=== PATIENT | male | born 1950 | race Caucasian/White ===

== ENCOUNTER 2016-04-20 19:01 | Emergency (ER) | payer BC ==
[2016-04-20 19:34] VITALS: BP 150/96; PULSE 76; TEMP 97.8; BMI 27.0
--- NOTE | 2016-04-20 20:40 | PDOC ---
*Physical Exam - Vital Signs Last Vital Signs Temp Pulse Resp BP Pulse Ox 97.8 F 76 18 150/96 96 04/20/16 19:32 04/20/16 19:32 04/20/16 19:32 04/20/16 19:32 04/20/16 19:32 ED Treatment Course - LABORATORY CBC & Chemistry Diagram: 04/20/16 21:45 04/20/16 21:45 Medical Decision Making - Medical Decision Making 04/20/16 20:40 agree with care from [facility] *DC/Admit/Observation/Transfer Diagnosis at time of Disposition: Lightheaded - Discharge Dispostion Disposition: HOME Condition at time of disposition: Improved - Referrals Referrals: Alfredo Goodman MD [Primary Care Provider] - - Patient Instructions Printed Discharge Instructions: DI for Dizziness-Nonvertigo Additional Instructions: FOLLOW UP WITH DR. GOODMAN ON MONDAY. GET REST. NO WORK UNTIL SEEN BY PCP. RETURN IF SYMPTOMS WORSEN OR ANY CONCERNS FOR FURTHER EVALUATION. Print Language: WELSH - Post Discharge Activity Work/School Note: Back to Work
--- NOTE | 2016-04-20 21:47 | PDOC ---
History of Present Illness - General Chief Complaint: Altered Mental Status Stated Complaint: ALTERED MENTAL STATE Time Seen by Provider: 04/20/16 20:08 History Source: Patient, Family (Daughter) Exam Limitations: No Limitations - History of Present Illness Initial Comments: 04/20/16 20:39 65yo Male patient presents to ED with daughter c/o altered mental status. Daughter states she received a call from her mother around 3pm today with concerns for her fathers well-being. Daughter then called her fathers place of employment, and spoke with a co-worker that works closely with her father, and he too expressed concerned that her father was acting strangely. Daughter pick father up from work and was instructed by PMD to bring him to ED for evaluation. Patient c/o feeling confused, dazed, experienced hot flash x 1. Associated polyuria and burning on urination per patient. Patient has history of prostate problems and HLD; he currently takes Flomax, Dutasteride, Lipitor. He denies CP, Abd pain, n/v/d, back pain, dysuria, hematuria, rectal bleeding, constipation, diff breathing, or any other complaints. Timing/Duration: reports: other (This Evening) Severity: Yes: mild Associated Symptoms: reports: confusion. denies: denies symptoms, fatigue, fever/chills, insomnia, loss of consciousness, muscle spasms, nausea/vomiting, numbness in legs/feet, paresthesia, ringing in ears, seizures, sleepy, slurred speech, tingling in legs/feet, trouble walking, vision changes, weakness, other Past History - Travel Traveled outside of the country in the last 30 days: No Close contact w/someone who was outside of country & ill: No - Past Medical History Allergies/Adverse Reactions: Allergies Allergy/AdvReac Type Severity Reaction Status Date / Time No Known Allergies Allergy Verified 04/20/16 19:32 Home Medications: Ambulatory Orders Aspirin [ASA -] 81 mg PO DAILY 12/08/14 Atorvastatin Ca [Lipitor -] 20 mg PO HS 12/08/14 Dutasteride [Avodart -] 0.5 mg PO DAILY 12/08/14 Tamsulosin HCl [Flomax] 0.4 mg PO DAILY 12/08/14 Topiramate [Topamax] 25 mg PO DAILY 12/08/14 Verapamil HCl [Verapamil ER] 240 mg PO DAILY 12/08/14 HTN: Yes Hypercholesterolemia: Yes - Psycho/Social/Smoking Cessation Hx Anxiety: No Suicidal Ideation: No Smoking History: Never smoked Have you smoked in the past 12 months: No Hx Alcohol Use: No Drug/Substance Use Hx: No Substance Use Type: None Neuro Specific PMHX - Complaint Specific PMHX Glaucoma: No Herniated Disk: No Laminectomy: No Migraine: No Multiple Sclerosis: No Neuropathy: No TIA: No Review of Systems - Review of Systems Able to Perform ROS?: Yes Is the patient limited Kyrgyz proficient: Yes Constitutional: No: Chills, Fever, Loss of Appetite, Malaise, Night Sweats, Weakness HEENTM: No: Blurred Vision, Recent change in vision, Double Vision, Nose Congestion, Nose Bleeding, Throat Pain, Throat Swelling, Difficulty Swallowing Respiratory: No: Cough, Orthopnea, Shortness of Breath, SOB with Exertion, SOB at Rest, Stridor, Wheezing, Hemoptysis Cardiac (ROS): No: Chest Pain, Edema, Irregular Heart Rate, Lightheadedness, Palpitations, Syncope, Chest Tightness ABD/GI: No: Constipated, Diarrhea, Nausea, Poor Appetite, Poor Fluid Intake, Rectal Bleeding, Vomiting, Abdominal cramping, Tarry Stools : Yes: Burning, Other (Polyuria). No: Dysuria, Frequency, Flank Pain, Hematuria, Pain, Urgency Musculoskeletal: No: Back Pain, Joint Pain, Joint Swelling, Muscle Pain, Muscle Weakness, Neck Pain, Joint Stiffness Integumentary: No: Bruising, Erythema, Rash, Sweating Neurological: No: Headache, Numbness, Paresthesia, Seizure, Tingling, Tremors, Weakness, Unsteady Gait, Ataxia, Dizziness Psychiatric: No: Anxiety, Depression All Other Systems: Reviewed and Negative *Physical Exam - Vital Signs Last Vital Signs Temp Pulse Resp BP Pulse Ox 97.8 F 76 18 150/96 96 04/20/16 19:32 04/20/16 19:32 04/20/16 19:32 04/20/16 19:32 04/20/16 19:32 - Physical Exam General Appearance: Yes: Nourished, Appropriately Dressed. No: Apparent Distress, Mild Distress, Moderate Distress, Severe Distress HEENT: positive: EOMI, RACHEL, Normal ENT Inspection, Normal Voice, Symmetrical, TMs Normal, Pharynx Normal. negative: Tonsillar Exudate, Tonsillar Erythema, Rhinorrhea, TM Bulging, TM Dull, TM Erythema Neck: positive: Trachea midline, Supple. negative: Decreased range of motion, Stridor, Lymphadenopathy (R), Lymphadenopathy (L) Respiratory/Chest: positive: Lungs Clear, Normal Breath Sounds. negative: Respiratory Distress, Accessory Muscle Use, Labored Respiration, Rapid RR, Decreased Breath Sounds, Crackles, Rales, Rhonchi, Stridor, Wheezing Cardiovascular: positive: Regular Rhythm, Regular Rate. negative: Edema, JVD, Murmur Gastrointestinal/Abdominal: positive: Normal Bowel Sounds, Soft. negative: Distended, Guarding, Rebound, Tenderness Lymphatic: negative: Adenopathy Musculoskeletal: positive: Normal Inspection. negative: CVA Tenderness Extremity: positive: Normal Capillary Refill, Normal Inspection, Normal Range of Motion. negative: Pedal Edema, Swelling Integumentary: positive: Normal Color, Dry, Warm. 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 MARCI GOODMAN) REVIEWED RESULTS, LABS, AND RADIOLOGY. "HAVE PATIENT FOLLOW UP ON MONDAY IN OFFICE." *DC/Admit/Observation/Transfer Diagnosis at time of Disposition: Lightheadedness - Discharge Dispostion Disposition: HOME Condition at time of disposition: Improved - Patient Instructions Printed Discharge Instructions: DI for Dizziness-Nonvertigo Additional Instructions: FOLLOW UP WITH DR. GOODMAN ON MONDAY. GET REST. NO WORK UNTIL SEEN BY PCP. RETURN IF SYMPTOMS WORSEN OR ANY CONCERNS FOR FURTHER EVALUATION. Print Language: NIGERIEN - Post Discharge Activity Work/School Note: Back to Work NIH Stroke Scale - Last Known Well Date/Time & Onset Date Last Known Well: 04/20/16 Time Last Known Well: 13:00 - Initial Evaluation Level of consciousness: Alert Ask patient the month and their age: Answers both correctly Ask patient to open & close eyes; make fist and let go: Obeys both correctly Best gaze (horizontal eye movement): Normal Visual field testing: No visual field loss Facial paresis (Show teeth/raise eyebrows/close eyes tight): Normal symmetrical movement Motor Function: Left Arm: Normal Motor Function: Right Arm: Normal (extends arm 90 (or 45) degrees for 10 seconds without drift Motor Function: Left Leg: Normal (extends leg 30 degrees for 5 seconds without drift) Motor Function: Right Leg: Normal (extends leg 30 degrees for 5 seconds without drift) Limb Ataxia: No ataxia Sensory(Use pinprick test arms,legs,trunk,face/side to side): Normal Best language (Describe picture, name items, read sentences): No Aphasia Dysarthria (read several words): Normal articulation Extinction and Inattention: No abnormality - Total Score NIH Stroke Scale Score: 0
[2016-04-20 21:58] LABS: URINE APPEARANCE CLEAR; URINE BILIRUBIN NEGATIVE (NEGATIVE); URINE BLOOD NEGATIVE (NEGATIVE); URINE COLOR STRAW; URINE GLUCOSE (UA) NEGATIVE (NEGATIVE); URINE KETONE NEGATIVE (NEGATIVE); URINE LEUK ESTERASE NEGATIVE (NEGATIVE); URINE NITRITE NEGATIVE (NEGATIVE); URINE PROTEIN NEGATIVE (NEGATIVE); URINE UROBILINOGEN NEGATIVE E.U./dl (0.2-1.0)
[2016-04-20 22:01] LABS: BASOPHIL 0.5 % (0-2.0); MCH 28.8 pg (25.7-33.7); MCHC 33.7 g/dl (32.0-35.9); MEAN CELL VOLUME 85.3 fl (80-96); MEAN PLT VOLUME 8.4 fl (7.5-11.1); NEUTROPHILS 60.5 % (42.8-82.8); PLATELET COUNT 269 K/MM3 (134-434); RDW 13.5 % (11.9-15.9); WHITE BLOOD COUNT 7.1 K/mm3 (4.0-10.0)
[2016-04-20 22:49] LABS: ALBUMIN 4.4 g/dl (3.4-5.0); ANION GAP 8 (8-16); BILIRUBIN,TOTAL 0.5 mg/dL (0.2-1.0); CALCIUM 9.8 mg/dL (8.5-10.1); CO2 28 mmol/L (21-32); GLUCOSE,RANDOM 93 mg/dL (74-106); SGOT/AST 23 U/L (15-37); SGPT/ALT 28 U/L (12-78); TOT PROT 7.4 g/dl (6.4-8.2)
[2016-04-20 22:52] LABS: ALK PHOS 67 U/L (45-117); TROPONIN I < 0.02 ng/ml (0.00-0.05)
--- NOTE | 2016-04-21 10:36 | EKG ---
Test Reason : Blood Pressure : / mmHG Vent. Rate : 067 BPM Atrial Rate : 067 BPM P-R Int : 208 ms QRS Dur : 094 ms QT Int : 404 ms P-R-T Axes : 056 007 042 degrees QTc Int : 426 ms NORMAL SINUS RHYTHM NORMAL ECG WHEN COMPARED WITH ECG OF 09-DEC-2014 08:54, NO SIGNIFICANT CHANGE WAS FOUND Confirmed by SANDRA CELIS MD ([id number]) on 04/21/2016 10:36:04 AM Referred By: Confirmed By:SANDRA CELIS MD
== END 2016-04-21 02:44 | disposition home or self-care (01) ==
LOC: JER 19:01
DX: R42 Dizziness and giddiness (principal); I10 Essential (primary) hypertension; E78.00 Pure hypercholesterolemia, unspecified
CPT/HCPCS: 36415; 70450-TC; 70460-TC; 71020-TC; 80053; 81003; 82550; 82553; 84484; 85025; 93005; 93010; 93880-TC; 99282-25

== ENCOUNTER 2017-04-20 16:07 | Inpatient (IN) | payer BC ==
[2017-04-20 16:44] VITALS: BMI 29.3
--- NOTE | 2017-04-20 16:45 | PDOC ---
Rapid Medical Evaluation Time Seen by Provider: 04/20/17 16:39 Medical Evaluation: Allergies Allergy/AdvReac Type Severity Reaction Status Date / Time No Known Allergies Allergy Verified 04/20/16 19:32 04/20/17 16:40 PT C/O: abd pain since this am, BRB since 1pm, no constipation, no diarrhea, no GI hx,, no cancer hx, no anticoag PT ON BRIEF EXAM: tachy, PT ORDERED FOR: cbc, comp, lipase, iv, ivf, type and screen, abd ct PT TO PROCEED TO THE ED: Discharge Disposition - Diagnosis Rectal bleeding - Referrals - Patient Instructions - Post Discharge Activity
[2017-04-20] MEDS ORDERED: SODIUM CHLORIDE 1,000 ML IV STA (16:46)
[2017-04-20 17:27] LABS: BASO % 0.9 % (0-2.0); HEMATOCRIT 44.1 % (35.4-49); HEMOGLOBIN 14.8 GM/dL (11.7-16.9); LYMPH % 22.5 % (8-40); MCH 28.9 pg (25.7-33.7); MCHC 33.5 g/dl (32.0-35.9); MEAN PLT VOLUME 8.9 fl (7.5-11.1); MONO % 5.8 % (3.8-10.2); NEUT % 69.8 % (42.8-82.8); PLATELET COUNT 330 K/MM3 (134-434); RBC 5.13 M/mm3 (4.00-5.60); RDW 13.9 % (11.9-15.9); WHITE BLOOD COUNT 7.5 K/mm3 (4.0-10.0)
[2017-04-20 17:59] LABS: INR 1.05 (0.82-1.09); PROTHROMBIN TIME (PATIENT) 11.9 SEC (9.98-11.88)
[2017-04-20 18:09] LABS: ALBUMIN 4.3 g/dl (3.4-5.0); ANION GAP 8 (8-16); BLOOD UREA NITROGEN 30 mg/dL (7-18); CALCIUM 8.5 mg/dL (8.5-10.1); CHLORIDE 106 mmol/L (98-107); CO2 25 mmol/L (21-32); CREATININE 1.3 mg/dL (0.7-1.3); GLUCOSE,RANDOM 123 mg/dL (74-106); POTASSIUM 4.5 mmol/L (3.5-5.1); SGOT/AST 14 U/L (15-37); SGPT/ALT 23 U/L (12-78); SODIUM 139 mmol/L (136-145)
[2017-04-20 18:11] LABS: ALK PHOS 59 U/L (45-117); BILIRUBIN,TOTAL 0.5 mg/dL (0.2-1.0); TOT PROT 7.2 g/dl (6.4-8.2)
[2017-04-20 18:12] LABS: LIPASE 204 U/L (73-393)
[2017-04-20] MEDS ORDERED: SODIUM CHLORIDE 0.9% 1000 ML INFUS.BAG IV ONE (19:39)
--- NOTE | 2017-04-20 20:34 | PDOC ---
History of Present Illness - General History Source: Patient Exam Limitations: No Limitations - History of Present Illness Initial Comments: 04/20/17 20:35 The patient is a 66 year old male with a significant PMH of constipation, BPH, HLD, and HTN who presents to the emergency department with abdominal pain since this morning and 6 episodes of bright red blood per rectum since 1PM today. The patient is also complaining of associated urinary urgency. The patient reports he experiences frequent constipation for which he takes a pill. The patient has had 4 episodes of bright red blood per rectum while being in the ER. The patient denies use of anticoagulants. The patient denies any GI history. The patient denies chest pain, shortness of breath, headache and dizziness. Denies fever, chills, nausea, vomit, and diarrhea Denies dysuria, frequency, and hematuria. Allergies: NKA Past surgical history: None reported. Social history: No reported alcohol, cigarette or drug use. PCP: Dr. Alfredo Burden GI: Dr. Wyatt <Renee Cerrato - Last Filed: 04/20/17 20:35> <Dora Garcia - Last Filed: 04/20/17 21:07> - General Chief Complaint: Rectal Bleed Stated Complaint: DIARRHEA Time Seen by Provider: 04/20/17 16:39 Past History <Renee Cerrato - Last Filed: 04/20/17 20:35> - Past Medical History COPD: No HTN: Yes Hypercholesterolemia: Yes - Suicide/Smoking/Psychosocial Hx Smoking History: Never smoked Have you smoked in the past 12 months: No Hx Alcohol Use: No Drug/Substance Use Hx: No Substance Use Type: None <Dora Garcia - Last Filed: 04/20/17 21:07> - Past Medical History Allergies/Adverse Reactions: Allergies Allergy/AdvReac Type Severity Reaction Status Date / Time No Known Allergies Allergy Verified 04/20/16 19:32 Home Medications: Ambulatory Orders Aspirin [ASA -] 81 mg PO DAILY 12/08/14 Dutasteride [Avodart -] 0.5 mg PO DAILY 12/08/14 Tamsulosin HCl [Flomax] 0.4 mg PO DAILY 12/08/14 Topiramate [Topamax] 25 mg PO DAILY 12/08/14 Review of Systems - Review of Systems Able to Perform ROS?: Yes Comments:: 04/20/17 20:36 GENERAL/CONSTITUTIONAL: No fever or chills. No weakness. HEAD, EYES, EARS, NOSE AND THROAT: No change in vision. No ear pain or discharge. No sore throat. GASTROINTESTINAL: (+) Abd pain. No nausea, vomiting, diarrhea or constipation. GENITOURINARY: (+) Bright red blood per rectum. No dysuria, frequency, or change in urination. CARDIOVASCULAR: No chest pain or shortness of breath. RESPIRATORY: No cough, wheezing, or hemoptysis. MUSCULOSKELETAL: No joint or muscle swelling or pain. No neck or back pain. SKIN: No rash NEUROLOGIC: No headache, vertigo, loss of consciousness, or change in strength/ sensation. ENDOCRINE: No increased thirst. No abnormal weight change. HEMATOLOGIC/LYMPHATIC: No anemia, easy bleeding, or history of blood clots. ALLERGIC/IMMUNOLOGIC: No hives or skin allergy. <Renee Cerrato - Last Filed: 04/20/17 20:35> *Physical Exam - Vital Signs Last Vital Signs Temp Pulse Resp BP Pulse Ox 97.8 F 92 H 16 143/105 98 04/20/17 16:41 04/20/17 19:04 04/20/17 19:04 04/20/17 19:04 04/20/17 19:04 - Physical Exam Comments: 04/20/17 20:35 Constitutional: Awake, alert, oriented. No acute distress. Head: Normocephalic. Atraumatic Eyes: PERRL. EOMI. Conjunctivae are not pale. ENT: Mucous membranes are moist and intact. Posterior pharynx without exudates or erythema. Uvula midline. Neck: Supple. Full ROM. No lymphadenopathy. Cardiovascular: (+) Tachycardic. Regular rhythm. S1, S2 regular. Distal pulses are 2+ and symmetric. Pulmonary/Chest: No evidence of respiratory distress. Clear to auscultation bilaterally No wheezing, rales or rhonchi. Abdominal: Soft and non-distended. There is no tenderness. No rebound, guarding or rigidity. No organomegaly. No palpable masses. Good bowel sounds. : (+) Bright red blood per rectum. Back: No CVA tenderness. Musculoskeletal: No edema. No cyanosis. No clubbing. Full range of motion in all extremities. Nocalf tenderness. Radial/pedal pulses are intact and 2+ bilaterally Skin: Skin is warm and dry. No petechiae. No purpura. Neurological: Alert and oriented to person, place, and time. Cranial nerves II -XII are grossly intact. Normal speech. Strength is grossly symmetric. No sensory deficits. Psychiatric: Good eye contact. Normal interaction, affect and behavior. <Renee Cerrato - Last Filed: 04/20/17 20:35> - Vital Signs Last Vital Signs Temp Pulse Resp BP Pulse Ox 97.8 F 92 H 16 143/105 98 04/20/17 16:41 04/20/17 19:04 04/20/17 19:04 04/20/17 19:04 04/20/17 19:04 <Dora Garcia - Last Filed: 04/20/17 21:07> ED Treatment Course - LABORATORY CBC & Chemistry Diagram: 04/20/17 16:58 04/20/17 16:58 - ADDITIONAL ORDERS Additional order review: Laboratory Results 04/20/17 04/20/17 04/20/17 17:16 16:58 16:58 PT with INR 11.90 H INR 1.05 Sodium Potassium Chloride Carbon Dioxide Anion Gap BUN Creatinine Creat Clearance w eGFR Random Glucose Calcium Magnesium 2.1 Total Bilirubin AST ALT Alkaline Phosphatase Total Protein Albumin Lipase Blood Type B POSITIVE Antibody Screen Negative 04/20/17 16:58 PT with INR INR Sodium 139 Potassium 4.5 Chloride 106 Carbon Dioxide 25 Anion Gap 8 BUN 30 H D Creatinine 1.3 D Creat Clearance w eGFR 55.06 Random Glucose 123 H D Calcium 8.5 Magnesium Total Bilirubin 0.5 AST 14 L D ALT 23 Alkaline Phosphatase 59 Total Protein 7.2 Albumin 4.3 Lipase 204 Blood Type Antibody Screen 04/20/17 16:58 RBC 5.13 MCV 86.0 MCHC 33.5 RDW 13.9 MPV 8.9 Neutrophils % 69.8 Lymphocytes % 22.5 D Monocytes % 5.8 Eosinophils % 1.0 Basophils % 0.9 - Medications Given in the ED: ED Medications Discontinued Medications Generic Name Dose Route Start Last Admin Trade Name Freq PRN Reason Stop Dose Admin Sodium Chloride 1,000 mls @ 1,000 mls/hr 04/20/17 16:46 04/20/17 18:07 Normal Saline - IV 04/20/17 17:45 1,000 mls/hr ASDIR STA Administration Sodium Chloride 1,000 ml 04/20/17 19:39 04/20/17 19:48 Normal Saline - IV 04/20/17 19:40 1,000 ml ONCE ONE Administration <Renee Cerrato - Last Filed: 04/20/17 20:35> - LABORATORY CBC & Chemistry Diagram: 04/20/17 16:58 04/20/17 16:58 - ADDITIONAL ORDERS Additional order review: Laboratory Results 04/20/17 04/20/17 04/20/17 17:16 16:58 16:58 PT with INR 11.90 H INR 1.05 Sodium Potassium Chloride Carbon Dioxide Anion Gap BUN Creatinine Creat Clearance w eGFR Random Glucose Calcium Magnesium 2.1 Total Bilirubin AST ALT Alkaline Phosphatase Total Protein Albumin Lipase Blood Type B POSITIVE Antibody Screen Negative 04/20/17 16:58 PT with INR INR Sodium 139 Potassium 4.5 Chloride 106 Carbon Dioxide 25 Anion Gap 8 BUN 30 H D Creatinine 1.3 D Creat Clearance w eGFR 55.06 Random Glucose 123 H D Calcium 8.5 Magnesium Total Bilirubin 0.5 AST 14 L D ALT 23 Alkaline Phosphatase 59 Total Protein 7.2 Albumin 4.3 Lipase 204 Blood Type Antibody Screen 04/20/17 16:58 RBC 5.13 MCV 86.0 MCHC 33.5 RDW 13.9 MPV 8.9 Neutrophils % 69.8 Lymphocytes % 22.5 D Monocytes % 5.8 Eosinophils % 1.0 Basophils % 0.9 - RADIOLOGY Radiology Studies Ordered: Category Date Time Status ABDOMEN & PELVIS CT W/O CONTR [CT] Stat CT Scan 04/20/17 19:54 Completed - Medications Given in the ED: ED Medications Discontinued Medications Generic Name Dose Route Start Last Admin Trade Name Freq PRN Reason Stop Dose Admin Sodium Chloride 1,000 mls @ 1,000 mls/hr 04/20/17 16:46 04/20/17 18:07 Normal Saline - IV 04/20/17 17:45 1,000 mls/hr ASDIR STA Administration Sodium Chloride 1,000 ml 04/20/17 19:39 04/20/17 19:48 Normal Saline - IV 04/20/17 19:40 1,000 ml ONCE ONE Administration <Dora Garcia - Last Filed: 04/20/17 21:07> Medical Decision Making - Medical Decision Making 04/20/17 20:32 a/p: 66yo male with 6 episodes of BRBPR -rectal exam with BRB will check labs, ivf hydration pts gi is dr. wyatt suspect diverticular bleed given painless bleeding ct abd/pelvis w contrast ordered from E 04/20/17 20:[address] shows diverticulosis case discussed with Dr. Burden - states he is admitting to the hospitalists service microblog sent to [facility] 04/20/17 20:40 family updated on the plan 04/20/17 20:[address] Orourke - accepts pt to tele <Dora Garcia - Last Filed: 04/20/17 21:07> *DC/Admit/Observation/Transfer <Renee Cerrato - Last Filed: 04/20/17 20:35> - Discharge Dispostion Admit: Yes - Attestations Physician Attestion: 04/20/17 20:34 I, Dr. Dora Garcia, DO, attest that this document has been prepared under my direction and personally reviewed by me in its entirety. I further attest, that it accurately reflects all work, treatment, procedures and medical decision -making performed by me. <Dora Garcia - Last Filed: 04/20/17 21:07> Diagnosis at time of Disposition: Rectal bleeding, Diverticular hemorrhage - Discharge Dispostion Condition at time of disposition: Fair - Referrals Referrals: Alfredo Burden MD [Primary Care Provider] - - Patient Instructions - Post Discharge Activity
--- NOTE | 2017-04-20 20:56 | HP ---
CHIEF COMPLAINT: LGIB PCP: Dr. Burden HISTORY OF PRESENT ILLNESS: 66 y/o M with PMH constipation (has had for 10 yrs; uses metamucil, miralax as per daughter), who presents to the ED c/o 4-5 episodes of painless BRBPR over the last day. He is on baby aspirin. As per pt, at noon today, he went to a local [facility] for soup. Right after, he had the urge to have a BM and when he went, he noticed BRB mixed in with loose stool. Pt had no associated abdominal pain or other sx at the time. He subsequently had 3-4 additional BMs, all loose over the next 8-9 hours, with BRB seen in the toilet bowl. Pt states that he has not had any drastic changes to his diet recently, and his BMs have been routine (1x/day). He follows with Dr. Rice, and last had a colonoscopy 2 yrs ago and upper endoscopy last yr, as per daughter, and both were WNL. Pt denies XIE, syncope, palpitations, lightheadedness, fever, chills, chest or abdominal pain, or changes in urinary or bowel function. Also denies constitutional sx. 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 Were filled in March for 90 day supply -Flomax 0.4mg qd -Verapamil ER 240 mg qd -Avodart 0.5 mg qd -Vascepa 1g 2 capsules BID -Lipitor 20mg 1tab qd Has not been filled since September: -Wellbutrin XL 150mg 1 tab qd REVIEW OF SYSTEMS CONSTITUTIONAL: Absent: fever, chills, diaphoresis, generalized weakness, malaise, loss of appetite, weight change HEENT: Absent: rhinorrhea, nasal congestion, throat pain, throat swelling, difficulty swallowing, mouth swelling, ear pain, eye pain, visual changes CARDIOVASCULAR: Absent: chest pain, syncope, palpitations, irregular heart rate, lightheadedness , peripheral edema RESPIRATORY: Absent: cough, shortness of breath, dyspnea with exertion, orthopnea, wheezing, stridor, hemoptysis GASTROINTESTINAL: +hematochezia Absent: abdominal pain, abdominal distension, nausea, vomiting, diarrhea, constipation, melena GENITOURINARY: Absent: dysuria, frequency, urgency, hesitancy, hematuria, flank pain, genital pain MUSCULOSKELETAL: Absent: myalgia, arthralgia, joint swelling, back pain, neck pain SKIN: Absent: rash, itching, pallor HEMATOLOGIC/IMMUNOLOGIC: Absent: easy bleeding, easy bruising, lymphadenopathy, frequent infections ENDOCRINE: Absent: unexplained weight gain, unexplained weight loss, heat intolerance, cold intolerance NEUROLOGIC: Absent: headache, focal weakness or paresthesias, dizziness, unsteady gait, seizure, mental status changes, bladder or bowel incontinence PSYCHIATRIC: Absent: anxiety, depression, suicidal or homicidal ideation, hallucinations. PHYSICAL EXAMINATION Vital Signs - 24 hr 04/20/17 04/20/17 16:41 19:04 Temperature 97.8 F Pulse Rate 118 H Pulse Rate [ 92 H Left Apical] Respiratory 18 16 Rate Blood Pressure 131/91 Blood Pressure 143/105 [Right Arm] O2 Sat by Pulse 98 98 Oximetry (%) GENERAL: Resting comfortably. Awake, alert, and fully oriented, in no acute distress. HEAD: Normal with no signs of trauma. EYES: Pupils equal, round and reactive to light, extraocular movements intact, sclera anicteric, conjunctiva clear. EARS, NOSE, THROAT: Ears normal, nares patent, oropharynx clear without exudates. Moist mucous membranes. NECK: Normal range of motion, supple LUNGS: Breath sounds equal, clear to auscultation bilaterally. No wheezes, and no crackles. No accessory muscle use. HEART: tachycardic rate and rhythm, normal S1 and S2 without murmur, rub or gallop. ABDOMEN: Soft, nontender, not distended, hyperactive bowel sounds, no guarding, no rebound, no masses. LOWER EXTREMITIES: 2+ posterior pulses, warm, well-perfused. No calf tenderness. No peripheral edema. NEUROLOGICAL: Cranial nerves II-XII intact. RECTAL: FOBT (+) Laboratory Results - last 24 hr 04/20/17 04/20/17 04/20/17 16:58 16:58 16:58 WBC 7.5 RBC 5.13 Hgb 14.8 Hct 44.1 MCV 86.0 MCH 28.9 MCHC 33.5 RDW 13.9 Plt Count 330 D MPV 8.9 Neutrophils % 69.8 Lymphocytes % 22.5 D Monocytes % 5.8 Eosinophils % 1.0 Basophils % 0.9 Sodium 139 Potassium 4.5 Chloride 106 Carbon Dioxide 25 Anion Gap 8 BUN 30 H D Creatinine 1.3 D Creat Clearance w eGFR 55.06 Random Glucose 123 H D Calcium 8.5 Magnesium Total Bilirubin 0.5 AST 14 L D ALT 23 Alkaline Phosphatase 59 Total Protein 7.2 Albumin 4.3 Lipase 204 Blood Type B POSITIVE Antibody Screen Negative 04/20/17 04/20/17 04/20/17 16:58 17:16 20:22 Basophils % PT with INR 11.90 H INR 1.05 Magnesium 2.1 Total Bilirubin Lipase Stool Occult Blood Positive Blood Type Radio CXR: without infiltrates or acute pathology, official report pending CT abd/pelvis: no evidence of bowel obstruction, sigmoid diverticulosis R and L colon. Possible reflux from GERD also noted, enlarged prostate gland, high riding testes-inguinal canal. ASSESSMENT/PLAN: 66 y/o M with PMH constipation (has had for 10 yrs; uses metamucil, miralax as per daughter), who presents to the ED c/o 4-5 episodes of BRBPR over the last day. Pt admitted to telemetry for lower GIB most likely 2/2 diverticular bleed. #Lower GIB most likely 2/2 diverticular bleed -Pt with hx multiple episodes painless BRBPR over last day -Hx of constipation, increased luminal pressure- diverticulosis -other differentials: angiodysplasia, hemorrhoids -currently pt hemodynamically stable. HR elevated most likely 2/2 anxiety -GI consult: Dr. Rice, to see in AM -H&H WNL -F/u CBC q6h -Transfuse if Hb<7; type and screen done -NPO for bowel rest -IVF -Hold aspirin, and any a/c -tele monitoring #HTN- currently uncontrolled -will monitor. most likely 2/2 anxiety -holding home verapamil 240 mg qd -continue to monitor BP #HLD -holding lipitor 20mg PO qd -holding vascepa 1g 2 capsules BID #BPH -Continue avodart 0.5mg qd -Flomax 0.4mg qd #ANIYAH most likely pre-renal -IVF -Monitor creatinine #PPX DVT: SCD's, no hep as pt with bleed #F/E/N IV NS 100 cc/hr Monitor electrolytes NPO #Disposition Telemetry monitoring Visit type - Emergency Visit Emergency Visit: Yes ED Registration Date: 04/20/17 Care time: The patient presented to the Emergency Department on the above date and was hospitalized for further evaluation of their emergent condition. - New Patient This patient is new to me today: Yes Date on this admission: 04/21/17 - Critical Care Critical Care patient: No
[2017-04-20] MEDS ORDERED: TAMSULOSIN HCL 0.4 MG CAP.ER.24H (FP) PO SCH (22:00)
[2017-04-20] MEDS ORDERED: TOPIRAMATE 25 MG TABLET (FP) ONE (22:32)
[2017-04-20] MEDS ORDERED: TAMSULOSIN HCL 0.4 MG CAP.ER.24H (FP) ONE (22:32)
[2017-04-20] MEDS: SODIUM CHLORIDE 1,000 ML IV SCH (23:26)
[2017-04-20] MEDS: DUTASTERIDE 0.5 MG CAP (FP) PO SCH (23:26)
[2017-04-20] MEDS: TOPIRAMATE 25 MG TABLET (FP) PO SCH (23:27)
--- NOTE | 2017-04-20 23:46 | PN ---
Teaching Attending Note Name of Resident: Julisa Neely ATTENDING PHYSICIAN STATEMENT I saw and evaluated the patient. I reviewed the resident's note and discussed the case with the resident. I agree with the resident's findings and plan as documented. SUBJECTIVE: This is a 66 year old man with a history of HTN, hyperlipidemia, BPH , constipation who comes to the ED complaining of rectal bleeding. He says that around 2:30pm today while at work, he had the urge to move his bowels. He noted bright red blood, and he has had several more episodes since. He denies abdominal pain, history of rectal bleeding. He takes baby aspirin daily. He had a colonoscopy ~2 years ago and endoscopy ~1 year ago, and he reports both were normal. He is unsure if he has diverticulosis or hemorrhoids. OBJECTIVE: Vital Signs Period Temp Pulse Resp BP Sys/Walls Pulse Ox Last 24 Hr 97.8 F 92-118 16-18 131-143/91-105 98-98 HEART: S1S2, tachycardic LUNGS: Clear ABDOMEN: Soft, non-tender, non-distended, normal BS EXTREMITIES: No edema Laboratory Tests 04/20/17 04/20/17 04/20/17 16:58 16:58 16:58 WBC 7.5 RBC 5.13 Hgb 14.8 Hct 44.1 MCV 86.0 MCH 28.9 MCHC 33.5 RDW 13.9 Plt Count 330 D MPV 8.9 Neutrophils % 69.8 Lymphocytes % 22.5 D Monocytes % 5.8 Eosinophils % 1.0 Basophils % 0.9 PT with INR INR Sodium 139 Potassium 4.5 Chloride 106 Carbon Dioxide 25 Anion Gap 8 BUN 30 H D Creatinine 1.3 D Creat Clearance w eGFR 55.06 Random Glucose 123 H D Calcium 8.5 Magnesium Total Bilirubin 0.5 AST 14 L D ALT 23 Alkaline Phosphatase 59 Total Protein 7.2 Albumin 4.3 Lipase 204 Stool Occult Blood Blood Type B POSITIVE Antibody Screen Negative 04/20/17 04/20/17 04/20/17 16:58 17:16 20:22 WBC RBC Hgb Hct MCV MCH MCHC RDW Plt Count MPV Neutrophils % Lymphocytes % Monocytes % Eosinophils % Basophils % PT with INR 11.90 H INR 1.05 Sodium Potassium Chloride Carbon Dioxide Anion Gap BUN Creatinine Creat Clearance w eGFR Random Glucose Calcium Magnesium 2.1 Total Bilirubin AST ALT Alkaline Phosphatase Total Protein Albumin Lipase Stool Occult Blood Positive Blood Type Antibody Screen Home Medications Medication Instructions Recorded Aspirin [ASA -] 81 mg PO DAILY 12/08/14 Dutasteride [Avodart -] 0.5 mg PO DAILY 12/08/14 Tamsulosin HCl [Flomax] 0.4 mg PO DAILY 12/08/14 Topiramate [Topamax] 25 mg PO DAILY 12/08/14 Atorvastatin Calcium [Lipitor] 20 mg PO 04/20/17 Verapamil HCl [Verapamil ER] 240 mg PO 04/20/17 ASSESSMENT AND PLAN: This is a 66 year old man with a history of HTN, hyperlipidemia, BPH, constipation who presented to the ED with several episodes of painless rectal bleeding. 1. Rectal bleeding - Diverticular vs AVM vs hemorrhoidal - NPO - Hold aspirin - IV fluid - Monitor hemoglobin - GI consult 2. Acute kidney injury - IV fluid - Monitor creatinine 3. HTN - Continue Verapamil 4. Hyperlipidemia - Continue Lipitor, Vascepa 5. BPH - Continue Flomax, Avodart
[2017-04-21 01:10] LABS: HEMATOCRIT 30.8 % (35.4-49); HEMOGLOBIN 10.4 GM/dL (11.7-16.9); MCH 28.9 pg (25.7-33.7); MCHC 33.8 g/dl (32.0-35.9); MEAN CELL VOLUME 85.7 fl (80-96); MEAN PLT VOLUME 8.3 fl (7.5-11.1); PLATELET COUNT 253 K/MM3 (134-434); RBC 3.59 M/mm3 (4.00-5.60); RDW 13.1 % (11.9-15.9); WHITE BLOOD COUNT 7.7 K/mm3 (4.0-10.0)
[2017-04-21 07:18] LABS: ANION GAP 6 (8-16); BLOOD UREA NITROGEN 33 mg/dL (7-18); CALCIUM 7.7 mg/dL (8.5-10.1); CHLORIDE 110 mmol/L (98-107); CO2 24 mmol/L (21-32); GLUCOSE,RANDOM 118 mg/dL (74-106); POTASSIUM 4.3 mmol/L (3.5-5.1); SODIUM 140 mmol/L (136-145)
[2017-04-21 08:00] LABS: BASO % 0.6 % (0-2.0); EOS % 0.9 % (0-4.5); HEMATOCRIT 29.6 % (35.4-49); LYMPH % 21.5 % (8-40); MCH 29.1 pg (25.7-33.7); MCHC 33.6 g/dl (32.0-35.9); MEAN CELL VOLUME 86.5 fl (80-96); MEAN PLT VOLUME 8.7 fl (7.5-11.1); MONO % 7.4 % (3.8-10.2); NEUT % 69.6 % (42.8-82.8); PLATELET COUNT 234 K/MM3 (134-434); RBC 3.43 M/mm3 (4.00-5.60); RDW 13.6 % (11.9-15.9); WHITE BLOOD COUNT 7.1 K/mm3 (4.0-10.0)
[2017-04-21] MEDS: DUTASTERIDE 0.5 MG CAP (FP) PO SCH (12:00)
[2017-04-21] MEDS: TOPIRAMATE 25 MG TABLET (FP) PO SCH (12:00)
[2017-04-21 12:49] LABS: HEMATOCRIT 30.1 % (35.4-49); MCH 28.6 pg (25.7-33.7); MCHC 33.1 g/dl (32.0-35.9); MEAN CELL VOLUME 86.3 fl (80-96); MEAN PLT VOLUME 8.4 fl (7.5-11.1); PLATELET COUNT 250 K/MM3 (134-434); RBC 3.48 M/mm3 (4.00-5.60); RDW 13.6 % (11.9-15.9); WHITE BLOOD COUNT 7.8 K/mm3 (4.0-10.0)
--- NOTE | 2017-04-21 14:13 | EKG ---
Test Reason : Blood Pressure : / mmHG Vent. Rate : 088 BPM Atrial Rate : 088 BPM P-R Int : 184 ms QRS Dur : 078 ms QT Int : 342 ms P-R-T Axes : 048 -15 024 degrees QTc Int : 413 ms NORMAL SINUS RHYTHM CANNOT RULE OUT INFERIOR INFARCT , AGE UNDETERMINED ABNORMAL ECG Confirmed by JAYA ÉPREZ MD ([id number]) on 04/21/2017 2:13:17 PM Referred By: Confirmed By:JAYA PÉREZ MD
--- NOTE | 2017-04-21 14:18 | PN ---
Progress Note (short form) - Note Progress Note: surgery pt seen and examined. full consult dictated. 66m with diverticulosis presents with painless rectal bleed that has stopped. no previous surgery. bleeding scan done but results pending. hgb 14, 10, 10, 10 abd- soft, nt Plan- gi bleed likely stopped and not localized. mangement per gi and IR. available if there is failure of conservative management
--- NOTE | 2017-04-21 14:26 | PN ---
Teaching Attending Note Name of Resident: Tony Pinzon ATTENDING PHYSICIAN STATEMENT I saw and evaluated the patient. I reviewed the resident's note and discussed the case with the resident. I agree with the resident's findings and plan as documented. SUBJECTIVE: No fever or chills , last bloody BM was this am in ER. No Abd pain , no pain in rectum, has no N/V, no previous bleeding. unit of blood was declined earlier as patient wished to receive it on floor not in ER despite resident and me explaining to pt and daughter OBJECTIVE: NAD, AAOx3 CV: RRR, no MRG Lung s: CTAB ext: no edema or erythema Abd: soft, NT, ND, NL BS ASSESSMENT AND PLAN: 66 y/o lady with h/o HTN, BPH, HLP and constipation who presented with painless rectal bleed. 1- GI bleed with acute blood los anemia , likely lower , form diverticular or AVM. internal hemorrhoidal bleed is possible - HB dropped 4 grams since last night, and last bloody BM was this am . - CT scan with no contrast reviewed. - Bleeding scan pending read, message left for radiologist - refused blood transfusion until on floor - GI eval pending - was on ASa and Naproxen at home. DC - PPI - hold BP meds and flomax in seting of acute bleed 2- H/O HTN: hold meds 3- ANIYAH: cr improved with fluid resuscitation. monitor elevated BUN , if increased might suggest an upper source of bleed with rapid transit 4- DVT PX : SCDs
--- NOTE | 2017-04-21 15:13 | PN ---
Physical Exam: SUBJECTIVE: Patient seen and examined at bedside. complain of fatigue, tired , lightheadedness. had multiple rectal bleeding before admission. denies any chest pain or SOB.denies N/V/D/C. denies abdominal pain or rectal pain. had gone to RBC scan this morning OBJECTIVE: Vital Signs Period Temp Pulse Resp BP Sys/Walls Pulse Ox Last 24 Hr 97.7 F-97.8 F 87-118 16-18 111-143/76-105 97-100 GENERAL: AAOx3 in NAD HEAD: Normal with no signs of trauma. EYES: PERRL,EOMI, sclera anicteric, conjunctiva clear. ENT: dry mucous membranes. NECK: supple. LUNGS: Breath sounds equal, clear to auscultation bilaterally, no wheezes, no crackles, no accessory muscle use. HEART: Regular rate and rhythm, S1, S2 without murmur, rub or gallop. ABDOMEN: Soft,NT, ND, + bowel sounds all 4 Q , no guarding, no rebound, EXTREMITIES: 2+ pulses, warm, well-perfused, no edema. NEUROLOGICAL: No focal deficit. Normal speech, gait not observed. PSYCH: Normal mood, normal affect. SKIN: Warm, dry, Laboratory Results - last 24 hr 04/20/17 04/20/17 04/20/17 16:58 16:58 16:58 WBC 7.5 RBC 5.13 Hgb 14.8 Hct 44.1 MCV 86.0 MCH 28.9 MCHC 33.5 RDW 13.9 Plt Count 330 D MPV 8.9 Neutrophils % 69.8 Lymphocytes % 22.5 D Monocytes % 5.8 Eosinophils % 1.0 Basophils % 0.9 PT with INR INR Sodium 139 Potassium 4.5 Chloride 106 Carbon Dioxide 25 Anion Gap 8 BUN 30 H D Creatinine 1.3 D Creat Clearance w eGFR 55.06 Random Glucose 123 H D Calcium 8.5 Magnesium Total Bilirubin 0.5 AST 14 L D ALT 23 Alkaline Phosphatase 59 Total Protein 7.2 Albumin 4.3 Lipase 204 Stool Occult Blood Blood Type B POSITIVE Antibody Screen Negative Crossmatch See Detail 04/20/17 04/20/17 04/20/17 16:58 17:16 20:22 WBC RBC Hgb Hct MCV MCH MCHC RDW Plt Count MPV Neutrophils % Lymphocytes % Monocytes % Eosinophils % Basophils % PT with INR 11.90 H INR 1.05 Sodium Potassium Chloride Carbon Dioxide Anion Gap BUN Creatinine Creat Clearance w eGFR Random Glucose Calcium Magnesium 2.1 Total Bilirubin AST ALT Alkaline Phosphatase Total Protein Albumin Lipase Stool Occult Blood Positive Blood Type Antibody Screen Crossmatch 04/21/17 04/21/17 04/21/17 00:56 06:10 06:10 WBC 7.7 7.1 RBC 3.59 L D 3.43 L Hgb 10.4 L D 10.0 L Hct 30.8 L D 29.6 L MCV 85.7 86.5 MCH 28.9 29.1 MCHC 33.8 33.6 RDW 13.1 13.6 Plt Count 253 D 234 MPV 8.3 8.7 Neutrophils % 69.6 Lymphocytes % 21.5 Monocytes % 7.4 Eosinophils % 0.9 Basophils % 0.6 PT with INR INR Sodium 140 Potassium 4.3 Chloride 110 H Carbon Dioxide 24 Anion Gap 6 L BUN 33 H Creatinine 1.0 D Creat Clearance w eGFR Random Glucose 118 H Calcium 7.7 L Magnesium Total Bilirubin AST ALT Alkaline Phosphatase Total Protein Albumin Lipase Stool Occult Blood Blood Type Antibody Screen Crossmatch 04/21/17 04/21/17 10:55 12:40 WBC 7.8 RBC 3.48 L Hgb 10.0 L Hct 30.1 L MCV 86.3 MCH 28.6 MCHC 33.1 RDW 13.6 Plt Count 250 MPV 8.4 Neutrophils % Lymphocytes % Monocytes % Eosinophils % Basophils % PT with INR INR Sodium Potassium Chloride Carbon Dioxide Anion Gap BUN Creatinine Creat Clearance w eGFR Random Glucose Calcium Magnesium Total Bilirubin AST ALT Alkaline Phosphatase Total Protein Albumin Lipase Stool Occult Blood Blood Type B POSITIVE Antibody Screen Crossmatch Active Medications Generic Name Dose Route Start Last Admin Trade Name Freq PRN Reason Stop Dose Admin Dutasteride 0.5 mg 04/20/17 22:00 04/21/17 12:00 Avodart - PO 0.5 mg DAILY MANNY Administration Sodium Chloride 1,000 mls @ 100 mls/hr 04/20/17 22:00 04/20/17 23:26 Normal Saline - IV 100 mls/hr ASDIR MANNY Administration Topiramate 25 mg 04/20/17 22:00 04/21/17 12:00 Topamax - PO 25 mg DAILY MANNY Administration CBC, BMP 04/21/17 12:40 04/21/17 06:10 CXR: without infiltrates or acute pathology, official report pending CT abd/pelvis: no evidence of bowel obstruction, sigmoid diverticulosis R and L colon. Possible reflux from GERD also noted, enlarged prostate gland, high riding testes-inguinal canal. ASSESSMENT/PLAN: This is a 66 year old man with a history of HTN, hyperlipidemia, BPH, constipation who presented to the ED with several episodes of painless rectal bleeding. # Rectal bleeding, resolved * due to diverticular bleed vs AVM vs hemorrhoids * CT abdomen reviewed * 2 large IV pores * CBC series Q 4hours * hold ASA * GI consulted * hemoglobin drop from 14 to 10.4 on admission * S/P one units of BRBC * NPO this AM , ice chipps in the afternoon S/P RBC scan . * PPI * continue IV fluids NS @ 100 CC/hr * red blood cell scan today in AM was negative for active bleeding * Monitor H/H , next CBC at 10 PM * had one BM at 1 pm with no bloody stool * ice chipps for now , next morning if hemoglobin stable and no blood in stool can advance to clear liquids per GI * consider colononoscopy in 6-8 weeks (last one in 2013 with diffuse diverticulosis ) # Acute kidney injury likely pre renal 2/2 acute bleeding , improved * cont IV fluid * Monitor BUN/Cr * monitor BUN to R/O upper GI bleed # HTN * Hold home meds for now * continue Verapamil 240 mg qd, if H/H stable , or if BP elevated #Hyperlipidemia * Continue Lipitor 20 mg po daily , * cont Vascepa (pt own ) 2 cap 1 g QD # BPH * hold Flomax 0.4 mg po daily(a antgonst can cause drop BP) * cont Avodart(Dutasteride) 0.5 mg po daily # Continue Topiramate 25 mg po daily # FEN * F: IV fluids NS@ 100 CC/hr * E: monitor * N: NPO for now , ice chipps over night , advance to clear liquid tomorrow if no active bleeding. # Proph * DVT: SCDS * GI: Protonix * # Dispo * Admit to tele Visit type - Emergency Visit Emergency Visit: Yes ED Registration Date: 04/20/17 Care time: The patient presented to the Emergency Department on the above date and was hospitalized for further evaluation of their emergent condition. - New Patient This patient is new to me today: Yes Date on this admission: 04/21/17 - Critical Care Critical Care patient: No - Discharge Referral Referred to [facility] No
--- NOTE | 2017-04-21 15:21 | MSN ---
Progress Note (SOAP) - Subjective Chief Complaint: Painless bowel movement with blood in stool yesterday afternoon, 04/20. Continued painless blood coming from rectum until yesterday evening around 8pm. History of Present Illness: Pt is a 66yo male with PMH significant for HTN, BPH, HLD, and constipation. Mr. Alamo presented to the ED on 04/20 because of painless blood coming from rectum. Pt reports the bleeding started after a bowel movement yesterday at 2PM that contained bright red blood, but denies associated pain. Pt reports continued bright red blood from his rectum until about 8pm last night. Pt reports another episode of bloody stool during his BM this morning (04/21). Pt denies any history of bloody stool or blood coming from his rectum. Pt denies abdominal pain, pain with defecation, n/v, chest pain, fever/chills, or dysuria. Pt does report urinary frequency due to his BPH and also reports his stools are usually soft and brown but become hard when he becomes constipated. Pt reports feeling lethargic and light headed which started at some point this morning. - Current Medications Current Medications: Active Medications Dutasteride (Avodart -) 0.5 mg PO DAILY [facility] Last Admin: 04/21/17 12:00 Dose: 0.5 mg Sodium Chloride (Normal Saline -) 1,000 mls @ 100 mls/hr IV ASDIR [facility] Last Admin: 04/20/17 23:26 Dose: 100 mls/hr Topiramate (Topamax -) 25 mg PO DAILY [facility] Last Admin: 04/21/17 12:00 Dose: 25 mg - Objective Vital Signs: Vital Signs Temperature 97.7 F 04/21/17 07:02 Pulse Rate 98 H 04/21/17 12:27 Respiratory Rate 18 04/21/17 12:27 Blood Pressure 119/78 04/21/17 12:27 O2 Sat by Pulse Oximetry (%) 98 04/21/17 12:27 Constitutional: Yes: Well Nourished, No Distress, Calm Eyes: Yes: Conjunctiva Clear, EOM Intact HENT: Yes: Atraumatic. No: Epistaxis, Nasal Congestion, Rhinnorhea, Tonsillar Exudate Neck: Yes: Supple, Trachea Midline. No: Lymphadenopathy Cardiovascular: Yes: Regular Rate and Rhythm. No: Bruit, JVD, Murmur Respiratory: Yes: Regular, CTA Bilaterally Gastrointestinal: Yes: Normal Bowel Sounds, Soft. No: Distention, Tenderness, Vomiting ...Rectal Exam: Yes: Guaiac Positive (+ FOBT, done by ED ) Musculoskeletal: No: Muscle Pain, Muscle Weakness Extremities: No: Calf Tenderness, Cool, Cyanosis, Delayed Capillary Refill Peripheral Pulses WNL: Yes Peripheral Pulses: Left Radial: 1+, Right Radial: 2+, Left Doralis Pedis: 2+, Right Dorsalis Pedis: 2+ Edema: No Neurological: Yes: Alert, Oriented, Cran Nerves II-XII Intact, Lethargy. No: Loss of Sensation ...Motor Strength: Yes: WNL (5/5 b/l upper and lower extremities) Psychiatric: Yes: Alert, Oriented Labs Lab Results: CBC, BMP 04/21/17 12:40 04/21/17 06:10 Imaging - Results Other: Pending (Nuclear Bleeding Scan) Problem List - Problems (1) Rectal bleeding Assessment/Plan: Diverticulosis vs hemorrhoids vs angiodysplsia Bleeding scan read pending Waiting GI consult Hold ASA and Naproxen Hold flomax and BP meds 1 unit of PRBCs ordered NPO for bowel rest Code(s): K62.5 - HEMORRHAGE OF ANUS AND RECTUM (2) BPH (benign prostatic hyperplasia) Assessment/Plan: Continue tx with avodart Hold flomax Code(s): N40.0 - BENIGN PROSTATIC HYPERPLASIA WITHOUT LOWER URINRY TRACT SYMP (3) Acute kidney injury Assessment/Plan: Likely pre-renal, improved with IVF Continue IVF @ 100cc/hr and monitor creatine Code(s): N17.9 - ACUTE KIDNEY FAILURE, UNSPECIFIED (4) Hypertension Assessment/Plan: BP currently stable. Hold BP meds due to acute blood loss. Code(s): I10 - ESSENTIAL (PRIMARY) HYPERTENSION (5) Hyperlipidemia Assessment/Plan: Allow pt to continue taking vascepa, brought in from home Code(s): E78.5 - HYPERLIPIDEMIA, UNSPECIFIED
--- NOTE | 2017-04-21 16:53 | CON.GI ---
Consult Consult Specialty:: gastroenterology Referred by:: Dr Alfredo Burden Reason for Consultation:: lower gi bleeding - History of Present Illness History of Present Illness: 66 y/o male was doing well intli yesterday when he developed several episodes of rectal bleeding associated with weakness. He denies chest pain, LOC and SOB. Hemoglobin dropped from 14 to 10. He underwent bleeding scan which was negative. His last bloody stool was early this morning. He is receiving 1 unit of PRBC as ordered. 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: Yes: Migraine, Vertigo Cardio/Vascular: Yes: HTN Pulmonary: Yes: COPD - Past Surgical History Past Surgical History: Yes: None - Alcohol/Substance Use Hx Alcohol Use: No - Smoking History Smoking history: Never smoked Have you smoked in the past 12 months: No - Social History ADL: Independent History of Recent Travel: No Home Medications - Allergies Allergies/Adverse Reactions: Allergies Allergy/AdvReac Type Severity Reaction Status Date / Time No Known Allergies Allergy Verified 04/20/16 19:32 - Home Medications Home Medications: Ambulatory Orders Aspirin [ASA -] 81 mg PO DAILY 12/08/14 Dutasteride [Avodart -] 0.5 mg PO DAILY 12/08/14 Tamsulosin HCl [Flomax] 0.4 mg PO DAILY 12/08/14 Topiramate [Topamax] 25 mg PO DAILY 12/08/14 Verapamil HCl [Verapamil ER] 80 mg PO TID 04/20/17 Diazepam [Valium] 5 mg PO HS 04/21/17 Icosapent Ethyl [Vascepa] 2 gm PO BID 04/21/17 Naproxen 500 mg PO BID 04/21/17 Physical Exam-GI Vital Signs: Vital Signs Temperature 97.4 F L 04/21/17 14:22 Pulse Rate 87 04/21/17 14:22 Respiratory Rate 16 04/21/17 14:22 Blood Pressure 137/87 04/21/17 14:22 O2 Sat by Pulse Oximetry (%) 98 04/21/17 12:27 Constitutional: Yes: Well Nourished Eyes: Yes: Conjunctiva Clear HENT: Yes: Atraumatic Neck: Yes: Supple Cardiovascular: Yes: Regular Rate and Rhythm Respiratory: Yes: CTA Bilaterally ...Palpate: Yes: Soft. No: Firm/Rigid, Guarding, Hepatomegaly, Mass, Pulsatile Mass, Splenomegaly, Tenderness Labs: CBC, BMP 04/21/17 12:40 04/21/17 06:10 INR, PTT INR 1.05 (0.82-1.09) 04/20/17 16:58 Problem List - Problems (1) Diverticular hemorrhage Assessment/Plan: resolved R> may have ice chips clear liquids in am if no bleeding serial CBC patient examined and history obtained with his family memebers and his . \ colonoscopy in 6-8 weeks last colonosocopy 2013--scattered diverticula colon through out Code(s): K57.31 - DVRTCLOS OF LG INT W/O PERFORATION OR ABSCESS W BLEEDING
[2017-04-21] MEDS: SODIUM CHLORIDE 1,000 ML IV SCH (21:10)
[2017-04-21 21:20] LABS: BASO % 0.8 % (0-2.0); HEMATOCRIT 30.5 % (35.4-49); HEMOGLOBIN 10.2 GM/dL (11.7-16.9); LYMPH % 25.6 % (8-40); MCH 28.9 pg (25.7-33.7); MCHC 33.5 g/dl (32.0-35.9); MEAN CELL VOLUME 86.3 fl (80-96); MEAN PLT VOLUME 8.6 fl (7.5-11.1); MONO % 8.8 % (3.8-10.2); NEUT % 63.8 % (42.8-82.8); PLATELET COUNT 228 K/MM3 (134-434); RBC 3.54 M/mm3 (4.00-5.60); RDW 13.6 % (11.9-15.9); WHITE BLOOD COUNT 7.3 K/mm3 (4.0-10.0)
[2017-04-21 22:47] LABS: HEMATOCRIT 31.4 % (35.4-49); HEMOGLOBIN 10.6 GM/dL (11.7-16.9); MCH 29.1 pg (25.7-33.7); MCHC 33.8 g/dl (32.0-35.9); MEAN CELL VOLUME 86.1 fl (80-96); MEAN PLT VOLUME 8.4 fl (7.5-11.1); PLATELET COUNT 235 K/MM3 (134-434); RBC 3.65 M/mm3 (4.00-5.60); RDW 13.8 % (11.9-15.9); WHITE BLOOD COUNT 8.3 K/mm3 (4.0-10.0)
[2017-04-22 07:38] LABS: BASO % 0.6 % (0-2.0); EOS % 1.5 % (0-4.5); HEMOGLOBIN 9.5 GM/dL (11.7-16.9); LYMPH % 23.8 % (8-40); MCH 28.9 pg (25.7-33.7); MCHC 33.9 g/dl (32.0-35.9); MEAN CELL VOLUME 85.4 fl (80-96); MEAN PLT VOLUME 8.5 fl (7.5-11.1); MONO % 7.6 % (3.8-10.2); NEUT % 66.5 % (42.8-82.8); PLATELET COUNT 215 K/MM3 (134-434); RBC 3.27 M/mm3 (4.00-5.60); RDW 13.7 % (11.9-15.9); WHITE BLOOD COUNT 7.2 K/mm3 (4.0-10.0)
--- NOTE | 2017-04-22 08:09 | CONS ---
DATE OF CONSULTATION: 04/21/2017 REASON FOR CONSULTATION: GI bleed. REQUESTING PHYSICIAN: Alfredo Burden MD BRIEF HISTORY: This is a 66-year-old male with known diverticulosis, presents to [facility] Emergency Room with painless rectal bleeding. His hemoglobin initially went from 14 down to 10. Then, 3 times it has been stable at 10. He went for a bleeding scan which is pending, and request was made for surgical evaluation for possible emergency surgery. Patient denies nausea, denies vomiting. His last colonoscopy was approximately 3 years ago. PAST MEDICAL HISTORY: Significant for constipation, benign prostatic hypertrophy, hyperlipidemia, hypertension. ALLERGIES: He has no known drug allergies. PAST SURGICAL HISTORY: Nil. SOCIAL HISTORY: Negative for alcohol. Negative for tobacco. He quit smoking many years ago. HOME MEDICATIONS: Include Flomax, verapamil, Avodart, and Lipitor. FAMILY HISTORY: Noncontributory. REVIEW OF SYSTEMS: General: Denies fatigue or malaise. Cardiac: Denies chest pain or palpitations. Respiratory: Denies shortness of breath or wheeze. Gastrointestinal: As in HPI. Denies nausea. Denies vomiting. Denies recent weight loss. Genitourinary: Denies dysuria. Musculoskeletal: Denies joint pain, joint swelling. Psychiatric: Denies anxiety, depression, or hearing voices. PHYSICAL EXAMINATION: General: He is a well-developed, well-nourished, 66-year-old male in no distress. Vital Signs: He is afebrile. His vital signs are stable. HEENT: His head is normocephalic. His sclerae anicteric. Neck: Supple. Chest: Clear. Abdomen: Soft, nontender. He has no surgical scars. No obvious hernias. Extremities: No edema. LABORATORY DATA: As stated in HPI. His white count is normal as well. His coagulation profile: He has a mildly elevated PT of 11.9. ASSESSMENT: This is a 66-year-old male who presents with painless bright red blood per rectum. His hemoglobin did drop to 10, but now appears stable. His bleeding scan is pending but likely negative. At this point, patient is being managed conservatively by the GI service. If he does re-bleed, he will likely require either a colonoscopy or an angiogram by the interventional radiology service. Surgical management would only be available as a last resort if all other measures failed. It would be helpful to localize the bleed in order to know which organ to remove. Currently, the patient likely would only get a subtotal colectomy, but even that could risk missing a small-bowel bleed. I will be available if conservative management fails or if surgical pathology noted during a colonoscopy. I discussed the case with Dr. Rice. DO MARCIO RAZA/[id number]
--- NOTE | 2017-04-22 08:37 | PN ---
Physical Exam: SUBJECTIVE: Patient seen and examined at bedside, complain of multiple bright red blood BM without stool, associated with mid epigastric abdominal pain. on clear liquid since yesterday will make him npo. denies any fever, chills, N/V/ D. denies any chest pain or lightheadedness. OBJECTIVE: Vital Signs Period Temp Pulse Resp BP Sys/Walls Pulse Ox Last 24 Hr 97.4 F-98.3 F 72-98 16-20 119-137/76-89 98-100 GENERAL: AAOx3 in NAD HEAD: Normal with no signs of trauma. EYES: PERRL,EOMI, sclera anicteric, conjunctiva clear. ENT: dry mucous membranes. NECK: supple. LUNGS: Breath sounds equal, clear to auscultation bilaterally, no wheezes, no crackles, no accessory muscle use. HEART: Regular rate and rhythm, S1, S2 without murmur, rub or gallop. ABDOMEN: Soft,mid epigatric tenderness, ND, + bowel sounds all 4 Q , no guarding , no rebound, EXTREMITIES: 2+ pulses, warm, well-perfused, no edema. NEUROLOGICAL: No focal deficit. Normal speech, gait not observed. PSYCH: Normal mood, normal affect. SKIN: Warm, dry, Laboratory Results - last 24 hr 04/20/17 04/21/17 04/21/17 16:58 10:55 12:40 WBC 7.8 RBC 3.48 L Hgb 10.0 L Hct 30.1 L MCV 86.3 MCH 28.6 MCHC 33.1 RDW 13.6 Plt Count 250 MPV 8.4 Neutrophils % Lymphocytes % Monocytes % Eosinophils % Basophils % Blood Type B POSITIVE B POSITIVE Antibody Screen Negative Crossmatch See Detail 04/21/17 04/21/17 04/22/17 21:00 22:35 06:30 WBC 7.3 8.3 7.2 RBC 3.54 L 3.65 L 3.27 L Hgb 10.2 L 10.6 L 9.5 L D Hct 30.5 L 31.4 L 28.0 L MCV 86.3 86.1 85.4 MCH 28.9 29.1 28.9 MCHC 33.5 33.8 33.9 RDW 13.6 13.8 13.7 Plt Count 228 235 215 MPV 8.6 8.4 8.5 Neutrophils % 63.8 66.5 Lymphocytes % 25.6 23.8 Monocytes % 8.8 7.6 Eosinophils % 1.0 1.5 Basophils % 0.8 0.6 Blood Type Antibody Screen Crossmatch Active Medications Generic Name Dose Route Start Last Admin Trade Name Mica PRN Reason Stop Dose Admin Dutasteride 0.5 mg 04/20/17 22:00 04/21/17 12:00 Avodart - PO 0.5 mg DAILY MANNY Administration Sodium Chloride 1,000 mls @ 100 mls/hr 04/20/17 22:00 04/21/17 21:10 Normal Saline - IV 100 mls/hr ASDIR MANNY Administration Topiramate 25 mg 04/20/17 22:00 04/21/17 12:00 Topamax - PO 25 mg DAILY MANNY Administration CBC, BMP 04/22/17 06:30 04/22/17 06:30 CXR: without infiltrates or acute pathology, official report pending CT abd/pelvis: no evidence of bowel obstruction, sigmoid diverticulosis R and L colon. Possible reflux from GERD also noted, enlarged prostate gland, high riding testes-inguinal canal. ASSESSMENT/PLAN: This is a 66 year old man with a history of HTN, hyperlipidemia, BPH, constipation who presented to the ED with several episodes of painless rectal bleeding. # Rectal bleeding, acute likely 2/2 divertiular bleed vs AVM vs hemorrhoid unlikely , r/o upper GI bleed as well * had multiple bloody BM today morning * Make him NPO (had clear liquid this AM) * transfer 2 units of RBCS * transfer 1 units of platelets due to platelet dysfunction (pt was on aspirin and naproxen before admission) * increased fluids to 150cc/hr NS * GI dr mcmillan was contacted by dr navarrete , on his way to evaluate the pt * CTA without contrast stat * 2 large IV pore * ppi drip * hold bp meds * consider transfer to ICU * consider EGD in addition to colonoscopy in term of mid epigastric tenderness and BUN/cr >20 to 1 * repeat H/H after transfusion and q 4 hr * avoid any NSAIDS or AC * LA 1.0 * started on ceftriaxone 1 gm IVBP daily per GI # Acute kidney injury likely pre renal 2/2 acute bleeding , improved * increase IV fluid to 150cc/hr NS * Monitor BUN/Cr * monitor BUN to R/O upper GI bleed * # HTN * Hold home meds for now * hold Verapamil 240 mg qd, due to active bleeding #Hyperlipidemia * hold Lipitor 20 mg po daily , * cont Vascepa (pt own ) 2 cap 1 g QD # BPH * hold Flomax 0.4 mg po daily(a antgonst can cause drop BP) * cont Avodart(Dutasteride) 0.5 mg po daily # FEN * F: IV fluids NS@ 150 CC/hr * E: monitor * N: NPO for now # Proph * DVT: SCDS * GI: Protonix drip * # Dispo * Admit to tele , consider transfer to ICU Visit type - Emergency Visit Emergency Visit: Yes ED Registration Date: 04/20/17 Care time: The patient presented to the Emergency Department on the above date and was hospitalized for further evaluation of their emergent condition. - New Patient This patient is new to me today: No - Critical Care Critical Care patient: No - Discharge Referral Referred to [facility] Med [facility].C[facility] No
--- NOTE | 2017-04-22 08:44 | PN ---
Teaching Attending Note Name of Resident: Freddie Stevenson ATTENDING PHYSICIAN STATEMENT I saw and evaluated the patient. I reviewed the resident's note and discussed the case with the resident. I agree with the resident's findings and plan as documented. SUBJECTIVE:no BM since yesterday am in ER until now , just had a painless episode of blood per rectum. no light headedness, no fever or chills, no CP or SOB. No stool seen only blood OBJECTIVE: NAD, AAOx3 CV: RRR, no MRG, not tachy Lungs: CTAB Ext: no edema or erythema Abd: soft, NT, ND, NL BS . bowel movement in toilet consists of blood only , no stool ASSESSMENT AND PLAN: 66 y/o lady with h/o HTN, BPH, HLP and constipation who presented with painless rectal bleed. 1- Lower GI bleed with acute blood loss anemia, likely diverticular , could be AVM actively bleeding now. VS stable , has no pain, no tachycardia or light headedness - HB 9.5 this am after a unit or RBC. - repeat CBC now . - give a unit of RBC as he is actively bleeding - order CTA stat - repeat CBC often - make NPO ( received clears for breakfast ) - page placed fro Dr. Rice - cont to hold all HTN meds and flomax 2- H/O HTN: hold meds 3- ANIYAH: Cr improved with fluid resuscitation. BMP pending for this am 4- DVT PX : SCD
[2017-04-22 08:46] LABS: CHLORIDE 112 mmol/L (98-107); SODIUM 142 mmol/L (136-145)
[2017-04-22 08:58] LABS: ALBUMIN 3.1 g/dl (3.4-5.0); ALK PHOS 41 U/L (45-117); ANION GAP 8 (8-16); BILIRUBIN,TOTAL 0.5 mg/dL (0.2-1.0); BLOOD UREA NITROGEN 24 mg/dL (7-18); CALCIUM 7.5 mg/dL (8.5-10.1); CO2 22 mmol/L (21-32); CREATININE 0.9 mg/dL (0.7-1.3); GLUCOSE,RANDOM 90 mg/dL (74-106); SGOT/AST 13 U/L (15-37); SGPT/ALT 17 U/L (12-78); TOT PROT 5.1 g/dl (6.4-8.2)
[2017-04-22] MEDS ORDERED: PT OWN MED DRAWER 7, Y5N ONE ×2 (09:28→11:43)
[2017-04-22] MEDS ORDERED: SODIUM CHLORIDE 1,000 ML IV SCH ×3 (10:42→20:15)
[2017-04-22] MEDS ORDERED: PANTOPRAZOLE SODIUM 80 MG in SODIUM CHLORIDE 100 ML IVPB SCH (11:00)
[2017-04-22] MEDS ORDERED: CEFTRIAXONE 1 G/50 ML PREMIX 50 ML IVPB SCH (11:00)
[2017-04-22] MEDS ORDERED: PANTOPRAZOLE SODIUM 160 MG in DEXTROSE 5%-WATER - 290 ML IVPB SCH (11:15)
[2017-04-22] MEDS: TOPIRAMATE 25 MG TABLET (FP) PO SCH (11:51)
[2017-04-22] MEDS: DUTASTERIDE 0.5 MG CAP (FP) PO SCH (11:53)
[2017-04-22] MEDS ORDERED: MAGNESIUM CITRATE 300 ML BOTTLE PO ONE (12:15)
[2017-04-22] MEDS ORDERED: SODIUM PHOSPHATE/NA BIPHOS 133 ML ENEMA PR ONE ×2 (15:00→19:15)
[2017-04-22 15:25] LABS: HEMATOCRIT 30.4 % (35.4-49); HEMOGLOBIN 10.6 GM/dL (11.7-16.9); MEAN CELL VOLUME 85.6 fl (80-96); MEAN PLT VOLUME 8.4 fl (7.5-11.1); PLATELET COUNT 221 K/MM3 (134-434); RBC 3.55 M/mm3 (4.00-5.60); RDW 13.6 % (11.9-15.9); WHITE BLOOD COUNT 9.4 K/mm3 (4.0-10.0)
[2017-04-22] MEDS ORDERED: EPINEPHrine 1:10,000 (P-F SYR) 1 MG/10 ML DISP.SYRIN ONE (16:46)
[2017-04-22] MEDS ORDERED: PROPOFOL 20 ML ONE ×3 (17:13)
[2017-04-22] MEDS ORDERED: ACETAMINOPHEN 500 MG TABLET (FP) PO PRN (18:45)
--- NOTE | 2017-04-22 19:28 | CONSULT ---
Consult - text type - Consultation Consultation Note: [facility] Pt seen and examined in ICU CC: BRBPR HPI: 66 y/o M with PMH constipation who presented to the ED two days ago c/o 4- 5 episodes of painless BRBPR. He is on baby aspirin, no other antiplt or anticoagulation, no significant NSAID use. Relates normal BMs prior have been routine (1x/day). He follows with Dr. Rice, and last had a colonoscopy 2 yrs ago and upper endoscopy last yr, as per daughter, and both were unremarkable. Pt was admitted to floor. Required transfusion. Hgb 14--> 10, held with transfusion. Underwent bleeding scan which was negative. Bleeding stopped shortly after admission to floor and was stable hgb on 04/21. This am developed more BRBPR. CTA was unable to localize due to contrast in bowel but but there was no perforation, colitis, or free air noted. Pt had multiple bright red bowel mvts. GI took pt to OR for EGD and C-scope. EGD was negative. C-scope with bleeding diverticulum which were clipped and bleeding hemorrhoids which were banded, with good homeostasis achieved. Pt had no apparent end organ damage due to his bleeding. Is without Cxpn, dizzines, syncope, SOB. 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 Migraine,Vertigo Cardio/Vascular HTN Pulmonary COPD Past Surgical History Past Surgical History None Smoking History Smoking history Never smoked Alcohol/Substance Use Hx Alcohol Use No Social History ADL Independent History of Recent Travel No Home Medications Medication Instructions Recorded Aspirin [ASA -] 81 mg PO DAILY 12/08/14 Dutasteride [Avodart -] 0.5 mg PO DAILY 12/08/14 Tamsulosin HCl [Flomax] 0.4 mg PO DAILY 12/08/14 Topiramate [Topamax] 25 mg PO DAILY 12/08/14 Verapamil HCl [Verapamil ER] 80 mg PO TID 04/20/17 Diazepam [Valium] 5 mg PO HS 04/21/17 Icosapent Ethyl [Vascepa] 2 gm PO BID 04/21/17 Naproxen 500 mg PO BID 04/21/17 Current Medications Acetaminophen (Tylenol -) 500 mg PO Q6H PRN PRN Reason: PAIN LEVEL 1-5 Chlorhexidine Gluconate (Hibiclens For Decolonization -) 1 applic TP HS MANNY Dutasteride (Avodart -) 0.5 mg PO DAILY [facility] CEFTRIAXONE 1 G/50 ML PREMIX (Ceftriaxone 1 Gm-D5w Bag) 50 mls @ 100 mls/hr IVPB DAILY [facility] Sodium Chloride (Normal Saline -) 1,000 mls @ 150 mls/hr IV ASDIR [facility] Mupirocin (Bactroban Ointment (For Decolonization) -) 1 applic NS BID MANNY Stop: 04/27/17 21:59 Topiramate (Topamax -) 25 mg PO DAILY [facility] CBC, BMP 04/22/17 14:56 04/22/17 06:30 Vital Signs Temp 98.2 F 04/22/17 14:30 Pulse 90 04/22/17 16:00 Resp 19 04/22/17 16:00 BP 144/95 04/22/17 16:00 Pulse Ox 98 04/22/17 09:00 Intake & Output 04/21/17 04/22/17 04/22/17 23:59 11:59 23:59 Intake Total 900 700 500 Balance 900 700 500 Weight 87.543 kg Intake: IV 550 700 Normal Saline - 1,000 ml 550 700 @ 100 mls/hr IV ASDIR [facility] Rx#:[id number] Packed Cells 350 Other 500 Other: Voiding Method Toilet Toilet Bowel Movement No No Yes # Bowel Movements 2 Height 5 ft 8 in Body Mass Index (BMI) 29.3 PE: Gen: awake, alert, non-toxic PULM: clear bilaterally CV: RRR, no m/r/g appreciated ABD: soft,NT, ND EXT: w/wp 2+ pulses. no edema Neuro: non-focal, ambulating. A/ 66 y/o man with bleeding diverticuli and hemorrhoids now with hemostasis after clipping and banding in C-scope P/ -maintain adequate IV access -monitor for further bleeding, serial CBC -GI following, re scope vs Surgery if recurrent bleeding -cont ceftriaxone if GI feels warranted based on findings -npo for now -floor in am if no further bleeding Mitch Salas ACNP 1956
[2017-04-22 19:47] LABS: BASO % 0.6 % (0-2.0); EOS % 0.6 % (0-4.5); HEMATOCRIT 32.7 % (35.4-49); HEMOGLOBIN 11.2 GM/dL (11.7-16.9); LYMPH % 11.2 % (8-40); MCH 29.5 pg (25.7-33.7); MCHC 34.3 g/dl (32.0-35.9); MEAN CELL VOLUME 85.9 fl (80-96); MEAN PLT VOLUME 8.3 fl (7.5-11.1); MONO % 6.7 % (3.8-10.2); NEUT % 80.9 % (42.8-82.8); PLATELET COUNT 263 K/MM3 (134-434); RDW 13.7 % (11.9-15.9); WHITE BLOOD COUNT 9.4 K/mm3 (4.0-10.0)
[2017-04-22] MEDS ORDERED: MORPHINE SULFATE 10 MG/1 ML *VIAL IVPUSH PRN (20:00)
[2017-04-22] MEDS: MUPIROCIN 2% TOPICAL OINTMENT FOR DECOLONIZATION NS SCH (21:39)
[2017-04-22] MEDS: CHLORHEXIDINE GLUCONATE 4% CLEANSER FOR DECOLONIZATION TP SCH (21:47)
[2017-04-22 21:59] LABS: HEMATOCRIT 32.8 % (35.4-49); HEMOGLOBIN 11.2 GM/dL (11.7-16.9); MCH 29.3 pg (25.7-33.7); MCHC 34.2 g/dl (32.0-35.9); MEAN CELL VOLUME 85.7 fl (80-96); MEAN PLT VOLUME 8.2 fl (7.5-11.1); PLATELET COUNT 262 K/MM3 (134-434); RBC 3.83 M/mm3 (4.00-5.60); RDW 13.3 % (11.9-15.9)
[2017-04-22] MEDS ORDERED: MUPIROCIN 2% TOPICAL OINTMENT FOR DECOLONIZATION NS SCH (22:00)
[2017-04-22] MEDS ORDERED: CHLORHEXIDINE GLUCONATE 4% CLEANSER FOR DECOLONIZATION TP SCH (22:00)
[2017-04-22] MEDS: VERAPAMIL HCL 80 MG TABLET PO SCH (23:06)
[2017-04-23 06:09] LABS: BASO % 0.6 % (0-2.0); EOS % 1.6 % (0-4.5); HEMATOCRIT 31.9 % (35.4-49); HEMOGLOBIN 11.1 GM/dL (11.7-16.9); LYMPH % 16.5 % (8-40); MCH 29.9 pg (25.7-33.7); MCHC 34.9 g/dl (32.0-35.9); MEAN CELL VOLUME 85.6 fl (80-96); MEAN PLT VOLUME 8.3 fl (7.5-11.1); MONO % 9.5 % (3.8-10.2); NEUT % 71.8 % (42.8-82.8); PLATELET COUNT 254 K/MM3 (134-434); RBC 3.72 M/mm3 (4.00-5.60); RDW 13.6 % (11.9-15.9); WHITE BLOOD COUNT 8.6 K/mm3 (4.0-10.0)
[2017-04-23] MEDS: VERAPAMIL HCL 80 MG TABLET PO SCH ×3 (06:21→21:00)
[2017-04-23] MEDS ORDERED: PT OWN MED DRAWER 7, Y5N ONE (09:11)
[2017-04-23] MEDS: DUTASTERIDE 0.5 MG CAP (FP) PO SCH (09:50)
[2017-04-23] MEDS: MUPIROCIN 2% TOPICAL OINTMENT FOR DECOLONIZATION NS SCH ×2 (09:50→21:00)
[2017-04-23] MEDS: TOPIRAMATE 25 MG TABLET (FP) PO SCH (09:51)
[2017-04-23] MEDS ORDERED: CEFTRIAXONE 1 G/50 ML PREMIX 50 ML IVPB SCH (10:00)
--- NOTE | 2017-04-23 10:58 | PN ---
Progress Note (short form) - Note Progress Note: Subjective: no fever or chills, has no abd pain. this am , had a drop of blood in bathroom ( saw it ) , bright red blood. Objective: Vital Signs: Last Vital Signs Temp Pulse Resp BP Pulse Ox 98.2 F 70 20 137/87 100 04/23/17 06:00 04/23/17 08:00 04/23/17 08:03 04/23/17 08:00 04/23/17 08:03 Laboratory Results - last 24 hr 04/21/17 04/22/17 04/22/17 10:55 11:10 14:56 WBC 9.4 D RBC 3.55 L Hgb 10.6 L D Hct 30.4 L MCV 85.6 MCH 30.0 MCHC 35.0 RDW 13.6 Plt Count 221 MPV 8.4 Neutrophils % Lymphocytes % Monocytes % Eosinophils % Basophils % Lactic Acid 1.0 Blood Type B POSITIVE Crossmatch See Detail 04/22/17 04/22/17 04/23/17 19:25 21:40 05:55 WBC 9.4 13.0 H D 8.6 D RBC 3.80 L 3.83 L 3.72 L Hgb 11.2 L 11.2 L 11.1 L Hct 32.7 L 32.8 L 31.9 L MCV 85.9 85.7 85.6 MCH 29.5 29.3 29.9 MCHC 34.3 34.2 34.9 RDW 13.7 13.3 13.6 Plt Count 263 262 254 MPV 8.3 8.2 8.3 Neutrophils % 80.9 D 71.8 Lymphocytes % 11.2 D 16.5 D Monocytes % 6.7 9.5 Eosinophils % 0.6 1.6 D Basophils % 0.6 0.6 Lactic Acid Blood Type Crossmatch Physical Exam: NAD, AAOx3 , comfortable ein bed CV: RRR, no MRG. Lungs: CTAB Ext: no edema or erythema Abd: soft, NT, ND, NL BS. ASSESSMENT AND PLAN: 66 y/o lady with h/o HTN, BPH, HLP and constipation who presented with painless rectal bleed. 1- Lower GI bleed : from sigmoid diverticulum and internal hemorrhoids. HB stable. - repeat HB at 3 pm and 9 pm - monitor for any bleed . - cont clear liquids - cont IVF 2- h/o HTN: - cont verapamil 80 TID ,and if no bleed tomorrow , then will place on 240 of ER daily 3- h/o BPH. large and irregular prostate on CT scan - cont to hold flomax in case he bleeds again. - if no bleed , will resume it in am - will bladder scan after he voids , and if he is retaining , I will start it today. family is very concerned - also family and pt are aware of irregular prostat, and the need fro PSA as out pt to r/o prostate cancer. 4- ANIYAH: improved 5- SCDs if no bled towards the end of the day , will transfer to floor Visit type - Emergency Visit Emergency Visit: Yes ED Registration Date: 04/20/17 Care time: The patient presented to the Emergency Department on the above date and was hospitalized for further evaluation of their emergent condition. - New Patient This patient is new to me today: No - Critical Care Critical Care patient: Yes Total Critical Care Time (in minutes): 30 Critical Care Statement: The care of this patient involved high complexity decision making to prevent further life threatening deterioration of the patient 's condition and/or to evaluate & treat vital organ system(s) failure or risk of failure.
[2017-04-23] MEDS ORDERED: VERAPAMIL HCL 240 MG E.R. TABLET (FP) PO SCH (11:00)
--- NOTE | 2017-04-23 13:07 | PN ---
Progress Note (short form) - Note Progress Note: Post op day#1.S/P Colonoscopy under MAC uneventful.P82,BP 138/88 and Spo2 975 on RA.Patient stable.No any anesthesia related problem.Patient Dc from the anesthesia care.
[2017-04-23 15:07] LABS: HEMATOCRIT 31.3 % (35.4-49); HEMOGLOBIN 10.7 GM/dL (11.7-16.9); MCH 29.2 pg (25.7-33.7); MCHC 34.2 g/dl (32.0-35.9); MEAN CELL VOLUME 85.5 fl (80-96); MEAN PLT VOLUME 8.1 fl (7.5-11.1); PLATELET COUNT 250 K/MM3 (134-434); RBC 3.66 M/mm3 (4.00-5.60); RDW 13.4 % (11.9-15.9); WHITE BLOOD COUNT 8.5 K/mm3 (4.0-10.0)
--- NOTE | 2017-04-23 15:23 | PN ---
Progress Note (short form) - Note Progress Note: PULM/CCM Pt seen & examined in the ICU. POD:#1 s/p C-scope in OR for LGIB, clipped & banded, stable, no signs of bleeding, Hgb stable, breathing easy, satting well ORA. Active Medications Acetaminophen (Tylenol -) 500 mg PO Q6H PRN PRN Reason: PAIN LEVEL 1-5 Last Admin: 04/22/17 20:02 Dose: 500 mg Chlorhexidine Gluconate (Hibiclens For Decolonization -) 1 applic TP HS [facility] Last Admin: 04/22/17 21:47 Dose: 1 applic Dutasteride (Avodart -) 0.5 mg PO DAILY [facility] Last Admin: 04/23/17 09:50 Dose: 0.5 mg Sodium Chloride (Normal Saline -) 1,000 mls @ 75 mls/hr IV ASDIR [facility] Last Admin: 04/22/17 20:13 Dose: 75 mls/hr Morphine Sulfate (Morphine Injection -) 2 mg IVPUSH Q3H PRN PRN Reason: PAIN LEVEL 4 - 6 Mupirocin (Bactroban Ointment (For Decolonization) -) 1 applic NS BID [facility] Stop: 04/27/17 21:59 Last Admin: 04/23/17 09:50 Dose: 1 applic Tamsulosin HCl (Flomax -) 0.4 mg PO DAILY@0830 [facility] Topiramate (Topamax -) 25 mg PO DAILY [facility] Last Admin: 04/23/17 09:51 Dose: Not Given Verapamil HCl (Calan -) 80 mg PO TID [facility] Last Admin: 04/23/17 13:45 Dose: 80 mg V/S Temp 98.5 F 04/23/17 14:00 Pulse 78 04/23/17 14:00 Resp 18 04/23/17 14:00 BP 124/84 04/23/17 14:00 Pulse Ox 100 04/23/17 08:03 I'S & O's 04/22/17 04/23/17 04/23/17 23:59 11:59 23:59 Intake Total 1075 725 800 Output Total 300 700 Balance 775 25 800 Intake: IV 375 525 800 Normal Saline - 1,000 ml 375 525 800 @ 75 mls/hr IV ASDIR [facility] Rx#:[id number] Oral 200 200 Other 500 Output: Urine 300 700 Void 300 700 Other: Voiding Method Urinal Urinal # Unmeasured Voids Void 5 Bowel Movement Yes No Yes # Bowel Movements 2 1 PE: Gen: awake, alert, non-toxic PULM: clear bilaterally CV: RRR, no m/r/g appreciated ABD: soft,NT, ND EXT: w/wp 2+ pulses. no edema Neuro: non-focal, ambulating. CBC, BMP 04/23/17 14:55 04/22/17 06:30 IMPORTANT STUDIES TO NOTE: CTAP 04/22: Impression: 1. Cannot evaluate for active contrast extravasation/ bleeding into the colon because of residual hyperdense contrast throughout the entire colon and rectum from the 04/20/2017 CT. 2. No evidence of contrast extravasation into the small bowel to suggest active bleeding. Nuclear medicine bleeding scan is more sensitive in detecting active bleeding and wall not be obscured by enteric contrast in the colon. 3. 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 4. Marked enlargement of the prostate gland with heterogeneous enhancement and nodular area of hyperattenuation as described above. These findings are of indeterminant significance, requiring clinical correlation with PSA and physical exam. 5. No evidence of bowel obstruction or diverticulitis. Normal appendix. No definite bowel wall thickening. 6. Previously described high riding left testes is no longer identified in the inguinal canal, presumably distended into the scrotum. Please correlate clinically. ASSESS: This is a 66 y/o man s/p C-scope w/ clipping and banding for bleeding diverticuli and hemorrhoids now w/ perfect hemostasis ready for X-Vin to Med Surg. PLAN: -Advance Diet a/p GI -maintain adequate IV access -monitor for further bleeding, serial CBCs -GI following, re scope vs Surgery if recurrent bleeding -cont ceftriaxone if GI feels warranted based on findings -Restart home Meds -Transfer --> floor DGL, ACNP-[facility] ICU PULM/CCM [id number]
[2017-04-23] MEDS: CHLORHEXIDINE GLUCONATE 4% CLEANSER FOR DECOLONIZATION TP SCH (21:00)
[2017-04-23 21:05] LABS: HEMATOCRIT 32.1 % (35.4-49); HEMOGLOBIN 11.1 GM/dL (11.7-16.9); MCH 29.5 pg (25.7-33.7); MCHC 34.7 g/dl (32.0-35.9); MEAN CELL VOLUME 84.9 fl (80-96); MEAN PLT VOLUME 7.9 fl (7.5-11.1); PLATELET COUNT 268 K/MM3 (134-434); RBC 3.78 M/mm3 (4.00-5.60); RDW 13.5 % (11.9-15.9); WHITE BLOOD COUNT 9.5 K/mm3 (4.0-10.0)
--- NOTE | 2017-04-24 04:47 | PN ---
Physical Exam: SUBJECTIVE: Patient seen and examined at bedside, no acute events over night .had colonoscopy on monday with clips and bandage with no complication , will continue to monitor for any GI bleed recurrence. OBJECTIVE: Vital Signs Period Temp Pulse Resp BP Sys/Walls Pulse Ox Last 24 Hr 98.1 F-98.5 F 67-84 15-20 123-140/71-94 100-100 GENERAL: AAOx3 in NAD HEAD: Normal with no signs of trauma. EYES: PERRL,EOMI, sclera anicteric, conjunctiva pale. ENT: dry mucous membranes. NECK: supple. LUNGS: Breath sounds equal, clear to auscultation bilaterally, no wheezes, no crackles, no accessory muscle use. HEART: Regular rate and rhythm, S1, S2 without murmur, rub or gallop. ABDOMEN: Soft,NT, ND, + bowel sounds all 4 Q , no guarding, no rebound, EXTREMITIES: 2+ pulses, warm, well-perfused, no edema. NEUROLOGICAL: No focal deficit. Normal speech, gait not observed. PSYCH: Normal mood, normal affect. SKIN: Warm, dry, Laboratory Results - last 24 hr 04/23/17 04/23/17 04/23/17 05:55 14:55 20:55 WBC 8.6 D 8.5 9.5 RBC 3.72 L 3.66 L 3.78 L Hgb 11.1 L 10.7 L 11.1 L Hct 31.9 L 31.3 L 32.1 L MCV 85.6 85.5 84.9 MCH 29.9 29.2 29.5 MCHC 34.9 34.2 34.7 RDW 13.6 13.4 13.5 Plt Count 254 250 268 MPV 8.3 8.1 7.9 Neutrophils % 71.8 Lymphocytes % 16.5 D Monocytes % 9.5 Eosinophils % 1.6 D Basophils % 0.6 Active Medications Generic Name Dose Route Start Last Admin Trade Name Freq PRN Reason Stop Dose Admin Acetaminophen 500 mg 04/22/17 18:45 04/22/17 20:02 Tylenol - PO 500 mg Q6H PRN Administration PAIN LEVEL 1-5 Chlorhexidine Gluconate 1 applic 04/22/17 22:00 04/23/17 21:00 Hibiclens For Decolonization - TP 1 applic HS MANNY Administration Dutasteride 0.5 mg 02/11/18 10:00 04/23/17 09:50 Avodart - PO 0.5 mg DAILY MANNY Administration Morphine Sulfate 2 mg 04/22/17 20:00 Morphine Injection - IVPUSH Q3H PRN PAIN LEVEL 4 - 6 Mupirocin 1 applic 04/22/17 22:00 04/23/17 21:00 Bactroban Ointment (For Decolonization) - NS 04/27/17 21:59 1 applic BID MANNY Administration Tamsulosin HCl 0.4 mg 04/24/17 08:30 Flomax - PO DAILY@0830 MANNY Topiramate 25 mg 04/23/17 10:00 04/23/17 09:51 Topamax - PO Not Given DAILY MANNY Verapamil HCl 80 mg 04/23/17 14:00 04/23/17 21:00 Calan - PO 80 mg TID MANNY Administration CBC, BMP 04/24/17 05:32 04/24/17 05:32 CTAP 04/22: Impression: 1. Cannot evaluate for active contrast extravasation/ bleeding into the colon because of residual hyperdense contrast throughout the entire colon and rectum from the 04/20/2017 CT. 2. No evidence of contrast extravasation into the small bowel to suggest active bleeding. Nuclear medicine bleeding scan is more sensitive in detecting active bleeding and wall not be obscured by enteric contrast in the colon. 3. 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 4. Marked enlargement of the prostate gland with heterogeneous enhancement and nodular area of hyperattenuation as described above. These findings are of indeterminant significance, requiring clinical correlation with PSA and physical exam. 5. No evidence of bowel obstruction or diverticulitis. Normal appendix. No definite bowel wall thickening. 6. Previously described high riding left testes is no longer identified in the inguinal canal, presumably distended into the scrotum. Please correlate clinically. ASSESSMENT/PLAN: This is a 66 year old man with a history of HTN, hyperlipidemia, BPH, constipation who presented to the ED with several episodes of painless rectal bleeding. # Rectal bleeding, due to internl hemorrhoids and sigmoid diverticulitis , resolved * S/P EGD, Colonoscopy clips and banding * CTA abdomen reviewed * maintain 2 large IV pores * CBC daily , f/u one at mid night * hold ASA * S/P 4 units of BRBCs, 1 units Plt * doft diet * PPI * no bloody BM since yesterday * consider colononoscopy in 6-8 weeks (last one in 2013 with diffuse diverticulosis ) # Acute kidney injury likely pre renal 2/2 acute bleeding , resolved * DC IV fluid * Monitor BUN/Cr # HTN * Hold home meds for now * continue Verapamil 240 mg qd, as H/H stable , #Hyperlipidemia * Continue Lipitor 20 mg po daily , * cont Vascepa (pt own ) 2 cap 1 g QD # BPH * continue Flomax 0.4 mg po BID as hemodynamically stable * cont Avodart(Dutasteride) 0.5 mg po daily * prstate enlargement and nodule : family aware will f/u out pt # Continue Topiramate 25 mg po daily # FEN * F: no standing fluids * E: monitor * N: NPO for now , ice chipps over night , advance to clear liquid tomorrow if no active bleeding. # Proph * DVT: SCDS * GI: Protonix * # Dispo * Admit to tele Visit type - Emergency Visit Emergency Visit: Yes ED Registration Date: 04/20/17 Care time: The patient presented to the Emergency Department on the above date and was hospitalized for further evaluation of their emergent condition. - New Patient This patient is new to me today: No - Critical Care Critical Care patient: No
[2017-04-24] MEDS: VERAPAMIL HCL 80 MG TABLET PO SCH ×3 (05:57→14:03)
[2017-04-24 06:15] LABS: HEMATOCRIT 33.2 % (35.4-49); HEMOGLOBIN 11.3 GM/dL (11.7-16.9); MCH 29.3 pg (25.7-33.7); MCHC 34.2 g/dl (32.0-35.9); MEAN CELL VOLUME 85.6 fl (80-96); MEAN PLT VOLUME 8.6 fl (7.5-11.1); PLATELET COUNT 269 K/MM3 (134-434); RBC 3.87 M/mm3 (4.00-5.60); RDW 13.6 % (11.9-15.9); WHITE BLOOD COUNT 7.9 K/mm3 (4.0-10.0)
[2017-04-24 06:18] LABS: ANION GAP 6 (8-16); BLOOD UREA NITROGEN 17 mg/dL (7-18); CALCIUM 8.4 mg/dL (8.5-10.1); CHLORIDE 111 mmol/L (98-107); CO2 25 mmol/L (21-32); CREATININE 0.9 mg/dL (0.7-1.3); GLUCOSE,RANDOM 102 mg/dL (74-106); POTASSIUM 3.8 mmol/L (3.5-5.1); SODIUM 142 mmol/L (136-145)
--- NOTE | 2017-04-24 08:13 | PN ---
Physical Exam: ICU RESIDENT SUBJECTIVE: Doing better. Not bleeding ifrah. No abdominal pain. No CP, no SOB. OBJECTIVE: Vital Signs Period Temp Pulse Resp BP Sys/Walls Pulse Ox Last 24 Hr 98.1 F-98.5 F 62-84 15-20 108-140/61-94 100-100 GEN: AAOx3, NAD, Lying comfortably HEENT: PERRLA, EOMi CV: S1, S2, RRR LUNG: CTABL ABD: Soft, NT, ND MSK: No edema, no erythema CBC, BMP 04/24/17 05:32 04/24/17 05:32 Active Medications Acetaminophen (Tylenol -) 500 mg PO Q6H PRN PRN Reason: PAIN LEVEL 1-5 Last Admin: 04/22/17 20:02 Dose: 500 mg Chlorhexidine Gluconate (Hibiclens For Decolonization -) 1 applic TP HS [facility] Last Admin: 04/23/17 21:00 Dose: 1 applic Dutasteride (Avodart -) 0.5 mg PO DAILY [facility] Last Admin: 04/24/17 09:12 Dose: 0.5 mg Mupirocin (Bactroban Ointment (For Decolonization) -) 1 applic NS BID [facility] Stop: 04/27/17 21:59 Last Admin: 04/24/17 09:13 Dose: 1 applic Tamsulosin HCl (Flomax -) 0.4 mg PO BID [facility] Topiramate (Topamax -) 25 mg PO DAILY [facility] Last Admin: 04/24/17 09:13 Dose: 25 mg Verapamil HCl (Calan Sr -) 240 mg PO DAILY [facility] ASSESSMENT/PLAN: 66yo M who was admitted w/ BRBPR. Upon workup C-scope revealed diverticulosis w / active bleeding s/p clipping + bleeding hemorrhoids s/p banding. In ICU for overnight observation #GI - LGIB from diverticulosis and internal hemorrhoids -- S/p diverticuli clips and hemorrhoid banding. Hgb continues to be stable. Tolerating diet. No bleeds. Stable for transfer # CV - HTN -- Verapamil 240 ER since pressures are maintained # Renal - ANIYAH improved # FEN/PPx - No IVF, Soft diet, No HSQ for GI bleed, no Gippx # Dispo - Transfer order placed to m/s Briana Moreau MD - PGY1 ICU Medicine Visit type - Emergency Visit Emergency Visit: No - New Patient This patient is new to me today: No - Critical Care Critical Care patient: Yes Total Critical Care Time (in minutes): 45 Critical Care Statement: The care of this patient involved high complexity decision making to prevent further life threatening deterioration of the patient 's condition and/or to evaluate & treat vital organ system(s) failure or risk of failure.
[2017-04-24] MEDS ORDERED: TAMSULOSIN HCL 0.4 MG CAP.ER.24H (FP) PO SCH ×3 (08:30→22:00)
[2017-04-24] MEDS ORDERED: PT OWN MED DRAWER 7, Y5N ONE ×4 (09:03→16:10)
[2017-04-24] MEDS: DUTASTERIDE 0.5 MG CAP (FP) PO SCH (09:12)
[2017-04-24] MEDS: MUPIROCIN 2% TOPICAL OINTMENT FOR DECOLONIZATION NS SCH (09:13)
[2017-04-24] MEDS: TOPIRAMATE 25 MG TABLET (FP) PO SCH (09:13)
[2017-04-24] MEDS ORDERED: PANTOPRAZOLE 40 MG TABLET (FP) PO SCH (10:00)
[2017-04-24] MEDS ORDERED: VERAPAMIL HCL 240 MG E.R. TABLET (FP) PO SCH (13:00)
--- NOTE | 2017-04-24 13:04 | PN ---
Teaching Attending Note Name of Resident: Briana Moreau ATTENDING PHYSICIAN STATEMENT I saw and evaluated the patient. I reviewed the resident's note and discussed the case with the resident. I agree with the resident's findings and plan as documented. SUBJECTIVE: Pt seen and examined in the ICU. No further bleeding. H/H stable. Tolerating PO. OBJECTIVE: Last Vital Signs Temp Pulse Resp BP Pulse Ox 98.2 F 70 18 134/94 100 04/24/17 06:00 04/24/17 08:00 04/24/17 08:00 04/24/17 08:00 04/24/17 07:52 Intake & Output 04/21/17 04/22/17 04/23/17 04/24/17 23:59 23:59 23:59 23:59 Intake Total 900 1775 1825 200 Output Total 300 700 Balance 900 1475 1125 200 Weight 87.543 kg Gen: NAD at rest Heart: RRR Lung: decreased breath sounds at the bases Abd: soft, nontender Ext: no edema CBC, BMP 04/24/17 05:32 04/24/17 05:32 Active Medications Acetaminophen (Tylenol -) 500 mg PO Q6H PRN PRN Reason: PAIN LEVEL 1-5 Last Admin: 04/22/17 20:02 Dose: 500 mg Chlorhexidine Gluconate (Hibiclens For Decolonization -) 1 applic TP HS [facility] Last Admin: 04/23/17 21:00 Dose: 1 applic Dutasteride (Avodart -) 0.5 mg PO DAILY [facility] Last Admin: 04/24/17 09:12 Dose: 0.5 mg Mupirocin (Bactroban Ointment (For Decolonization) -) 1 applic NS BID [facility] Stop: 04/27/17 21:59 Last Admin: 04/24/17 09:13 Dose: 1 applic Tamsulosin HCl (Flomax -) 0.4 mg PO DAILY@0830 [facility] Last Admin: 04/24/17 09:12 Dose: 0.4 mg Tamsulosin HCl (Flomax -) 0.4 mg PO DAILY@0830 [facility] Topiramate (Topamax -) 25 mg PO DAILY [facility] Last Admin: 04/24/17 09:13 Dose: 25 mg Verapamil HCl (Calan Sr -) 240 mg PO DAILY [facility] ASSESSMENT AND PLAN: Lower GI Bleed/Diverticulosis/Hemorrhoids Acute Blood Loss Anemia s/p Colonoscopy/clipping/banding HTN BPH - monitor H/H - PO as tolerated - OOB to chair - continue home meds - DVT prophylaxis - can monitor on floor
--- NOTE | 2017-04-24 13:11 | PN ---
Teaching Attending Note Name of Resident: Tony Pinzon ATTENDING PHYSICIAN STATEMENT I saw and evaluated the patient. I reviewed the resident's note and discussed the case with the resident. I agree with the resident's findings and plan as documented. SUBJECTIVE: No fever or chills, has no abd pain , no more GI bleed . OBJECTIVE: NAD, AAOx3 , comfortable in bed CV: RRR, no MRG. Lungs: CTAB Ext: no edema or erythema Abd: soft, NT, ND, NL BS. ASSESSMENT AND PLAN: 66 y/o lady with h/o HTN, BPH, HLP and constipation who presented with painless rectal bleed. 1- Lower GI bleed : from sigmoid diverticulum and internal hemorrhoids. HB stable. - monitor HB - cont soft diet - off IVF 2- h/o HTN: - switch to his home dos eof verapamil 240 ER daily 3- h/o BPH. large and irregular prostate on CT scan - flomax - Pt and family and pt are aware of irregular prostat, and the need for PSA as out pt to r/o prostate cancer. 4- ANIYAH:resolved 5- SCDs dc in am
[2017-04-24] MEDS ORDERED: ACETAMINOPHEN 500 MG TABLET (FP) PO PRN ×2 (16:50→22:39)
[2017-04-24 21:56] LABS: HEMATOCRIT 34.9 % (35.4-49); MCH 29.5 pg (25.7-33.7); MCHC 34.5 g/dl (32.0-35.9); MEAN CELL VOLUME 85.6 fl (80-96); MEAN PLT VOLUME 8.2 fl (7.5-11.1); PLATELET COUNT 310 K/MM3 (134-434); RBC 4.07 M/mm3 (4.00-5.60); RDW 13.8 % (11.9-15.9); WHITE BLOOD COUNT 8.8 K/mm3 (4.0-10.0)
[2017-04-24] MEDS ORDERED: CHLORHEXIDINE GLUCONATE 4% CLEANSER FOR DECOLONIZATION TP SCH (22:00)
[2017-04-24] MEDS ORDERED: MUPIROCIN 2% TOPICAL OINTMENT FOR DECOLONIZATION NS SCH (22:00)
[2017-04-25 07:53] LABS: HEMATOCRIT 32.6 % (35.4-49); HEMOGLOBIN 11.2 GM/dL (11.7-16.9); MCH 29.1 pg (25.7-33.7); MCHC 34.2 g/dl (32.0-35.9); MEAN PLT VOLUME 8.6 fl (7.5-11.1); PLATELET COUNT 278 K/MM3 (134-434); RBC 3.84 M/mm3 (4.00-5.60); RDW 13.7 % (11.9-15.9); WHITE BLOOD COUNT 7.4 K/mm3 (4.0-10.0)
[2017-04-25 08:07] LABS: ALBUMIN 3.3 g/dl (3.4-5.0); ANION GAP 9 (8-16); BLOOD UREA NITROGEN 23 mg/dL (7-18); CALCIUM 8.5 mg/dL (8.5-10.1); CHLORIDE 110 mmol/L (98-107); CO2 24 mmol/L (21-32); GLUCOSE,RANDOM 101 mg/dL (74-106); POTASSIUM 3.5 mmol/L (3.5-5.1); SGOT/AST 24 U/L (15-37); SGPT/ALT 25 U/L (12-78); SODIUM 143 mmol/L (136-145)
[2017-04-25 08:09] LABS: ALK PHOS 49 U/L (45-117); BILIRUBIN,TOTAL 0.6 mg/dL (0.2-1.0); TOT PROT 5.9 g/dl (6.4-8.2)
[2017-04-25] MEDS ORDERED: TAMSULOSIN HCL 0.4 MG CAP.ER.24H (FP) PO SCH ×2 (08:30→10:00)
[2017-04-25] MEDS: TOPIRAMATE 25 MG TABLET (FP) PO SCH ×2 (09:38→09:40)
[2017-04-25] MEDS ORDERED: MUPIROCIN 2% TOPICAL OINTMENT FOR DECOLONIZATION NS SCH (10:00)
[2017-04-25] MEDS ORDERED: TOPIRAMATE 25 MG TABLET (FP) PO SCH (10:00)
[2017-04-25] MEDS ORDERED: VERAPAMIL HCL 240 MG E.R. TABLET (FP) PO SCH (10:00)
[2017-04-25] MEDS ORDERED: DUTASTERIDE 0.5 MG CAP (FP) PO SCH ×2 (10:00)
--- NOTE | 2017-04-25 12:02 | DS ---
Physical Exam: SUBJECTIVE: Patient seen and examined at bedside. No acute events over night. no bleeding reported. OBJECTIVE: Vital Signs Period Temp Pulse Resp BP Sys/Walls Pulse Ox Last 24 Hr 97.8 F-98.7 F 76-102 20-22 112-142/75-99 100 PHYSICAL EXAM GENERAL: AAOx3 in NAD HEAD: Normal with no signs of trauma. EYES: PERRL,EOMI, sclera anicteric, conjunctiva pale. ENT: dry mucous membranes. NECK: supple. LUNGS: Breath sounds equal, clear to auscultation bilaterally, no wheezes, no crackles, no accessory muscle use. HEART: Regular rate and rhythm, S1, S2 without murmur, rub or gallop. ABDOMEN: Soft,NT, ND, + bowel sounds all 4 Q , no guarding, no rebound, EXTREMITIES: 2+ pulses, warm, well-perfused, no edema. NEUROLOGICAL: No focal deficit. Normal speech, gait not observed. PSYCH: Normal mood, normal affect. SKIN: Warm, dry, LABS Laboratory Results - last 24 hr 04/20/17 04/24/17 04/25/17 16:58 21:51 06:00 WBC 8.8 7.4 RBC 4.07 3.84 L Hgb 12.0 11.2 L Hct 34.9 L 32.6 L MCV 85.6 85.0 MCH 29.5 29.1 MCHC 34.5 34.2 RDW 13.8 13.7 Plt Count 310 278 MPV 8.2 8.6 Sodium Potassium Chloride Carbon Dioxide Anion Gap BUN Creatinine Creat Clearance w eGFR Random Glucose Calcium Total Bilirubin AST ALT Alkaline Phosphatase Total Protein Albumin Blood Type B POSITIVE Antibody Screen Negative Crossmatch See Detail 04/25/17 06:00 WBC RBC Hgb Hct MCV MCH MCHC RDW Plt Count MPV Sodium 143 Potassium 3.5 Chloride 110 H Carbon Dioxide 24 Anion Gap 9 BUN 23 H D Creatinine 1.0 Creat Clearance w eGFR > 60 Random Glucose 101 Calcium 8.5 Total Bilirubin 0.6 AST 24 D ALT 25 D Alkaline Phosphatase 49 Total Protein 5.9 L Albumin 3.3 L Blood Type Antibody Screen Crossmatch CBC, BMP 04/25/17 06:00 04/25/17 06:00 HOSPITAL COURSE: Date of Admission:04/20/17 Date of Discharge: 04/25/17 CTAP 04/22: Impression: 1. Cannot evaluate for active contrast extravasation/ bleeding into the colon because of residual hyperdense contrast throughout the entire colon and rectum from the 04/20/2017 CT. 2. No evidence of contrast extravasation into the small bowel to suggest active bleeding. Nuclear medicine bleeding scan is more sensitive in detecting active bleeding and wall not be obscured by enteric contrast in the colon. 3. 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 4. Marked enlargement of the prostate gland with heterogeneous enhancement and nodular area of hyperattenuation as described above. These findings are of indeterminant significance, requiring clinical correlation with PSA and physical exam. 5. No evidence of bowel obstruction or diverticulitis. Normal appendix. No definite bowel wall thickening. 6. Previously described high riding left testes is no longer identified in the inguinal canal, presumably distended into the scrotum. Please correlate clinically. ASSESSMENT/PLAN: Ms. Covarrubias is a 66 year old man with a history of HTN, hyperlipidemia, BPH, constipation who presented to the ED with several episodes of painless rectal bleeding. due to internl hemorrhoids and sigmoid diverticulitis ,S/P EGD, Colonoscopy clips and banding CTA abdomen as above , we hold ASA during the visit, recieved total of 4 units of BRBCs, 1 units Plt ,we put him on PPI ,no bloody BM was noted since the clips and banded was done.consider colononoscopy in 6-8 weeks (last one in 2013 with diffuse diverticulosis ). will follow up with Dr.Martin Burden as out patient for his CBC within one week. pt developed Acute kidney injury likely pre renal 2/2 acute bleeding , resolved with fluids and transfusion.and his BUN/Cr has improved to his base line.pt has Hyperlipidemiaon Lipitor 20 mg po daily ,and Vascepa (pt own ) 2 cap 1 g QD he has h/o BPH confirmed on CT scan, on Flomax 0.4 mg po BID (was held during bleeding )and Avodart(Dutasteride) 0.5 mg po daily , family aware of prstate enlargement and nodule will f/u out pt with resume all other home meds upon discharge , stop using ASA, NSAIDS till he sees his GI dr Orta who did the procedure for him. pt was monitored in ICU and then transfeered to med-surg and discharged home as he he is hemodynamically stable and not bleeding any more . he was informed to call 911 or come back to ED if he developed any bleeding. Minutes to complete discharge: 40 Discharge Summary Reason For Visit: DIVERTICULOSIS OF LARGE INTESTINE WITH HEMORRHAGE Condition: Stable - Instructions Diet, Activity, Other Instructions: You were admitted to the hospital for lower bleed from the colon(diverticular bleed) and internal hemorroids . colonoscopy was done by who clips the bleed source and banded the hemorrhoids. the bleed has been stop since then Please monitor for any recurrent of bleeding. 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 Joey Please resume all other home meds as prescribed before admission Please follow up with Your gastroenetrolgist within one week Dr Rice please follow up with your primary care physician within one week Please follow with for prostate problem within one week Dr.Nayel Burden. You need PSA checked ( a marker to rule out cancer ) also you need ultra sound of your prostate If you develop fever, chills , lightheadedness, or you saw any blood again in the stool please inform you doctor , call 911 and come back to Emergency room as soon as possible blood work in 1 wek to send to Dr. Alfredo Burden Referrals: Gopi Rice MD [Staff Physician] - 1 Week Jason Waldrop MD [Non Staff, Medical] - 1 Week Alfredo Burden MD [Primary Care Provider] - 1 Week Avery Burden MD [Staff Physician] - Disposition: HOME - Home Medications Comprehensive Discharge Medication List: Ambulatory Orders Dutasteride [Avodart] 0.5 mg PO DAILY 12/08/14 Tamsulosin HCl [Flomax -] 0.4 mg PO BID 12/08/14 Topiramate [Topamax] 25 mg PO DAILY 12/08/14 Verapamil HCl [Verapamil ER] 240 mg PO DAILY 04/20/17 Diazepam [Valium] 5 mg PO HS 04/21/17 Icosapent Ethyl [Vascepa] 2 gm PO BID 04/21/17 Miscellaneous Medical Supply [Outpatient Order] 1 each ASDIR #1 [facility] [place] This patient is new to me today: No Emergency Visit: Yes ED Registration Date: 04/20/17 Care time: The patient presented to the Emergency Department on the above date and was hospitalized for further evaluation of their emergent condition. Critical Care patient: No - Discharge Referral Referred to [facility] No
[2017-04-25 12:10] VITALS: BP 132/81; PULSE 82; TEMP 98.4
--- NOTE | 2017-04-25 18:56 | PN ---
Teaching Attending Note Name of Resident: Tony Pinzon ATTENDING PHYSICIAN STATEMENT I saw and evaluated the patient. I reviewed the resident's note and discussed the case with the resident. I agree with the resident's findings and plan as documented. SUBJECTIVE: no fever or chills. has no abd pain, no rectal bled . OBJECTIVE: NAD, AAOx3 , comfortable in bed CV: RRR, no MRG. Lungs: CTAB Ext: no edema or erythema Abd: soft, NT, ND, NL BS. ASSESSMENT AND PLAN: 66 y/o lady with h/o HTN, BPH, HLP and constipation who presented with painless rectal bleed. 1- Lower GI bleed: from sigmoid diverticulum and internal hemorrhoids. stable HB. f/u with GI as out pt . hold asa after dc until f/u with GI. asked to stop Naproxen 2- h/o HTN: - cont verpamil 3- h/o BPH. large and irregular prostate on CT scan - flomax - Pt and family and pt are aware of irregular prostat, and the need for PSA as out pt to r/o prostate cancer. 4- ANIYAH:resolved dc home
[2017-04-25] MEDS ORDERED: CHLORHEXIDINE GLUCONATE 4% CLEANSER FOR DECOLONIZATION TP SCH (22:00)
== END 2017-04-25 11:37 | disposition home or self-care (01) | DRG 348 ==
LOC: JER 16:07 → JERBED 20:50 → J4S 04-21 14:13 → JICU 04-22 14:36 → J8W 04-24 23:16
PROVIDERS: ADMIT Internal Medicine; ATTEND Internal Medicine
PROC: 0DJ08ZZ Inspection of Upper Intestinal Tract, Via Natural or Artificial Opening Endoscopic (ICD-10-PCS; 2017-04-22)
PROC: 30233N1 Transfusion of Nonautologous Red Blood Cells into Peripheral Vein, Percutaneous Approach (ICD-10-PCS; 2017-04-22)
PROC: 30233R1 Transfusion of Nonautologous Platelets into Peripheral Vein, Percutaneous Approach (ICD-10-PCS; 2017-04-22)
PROC: 06LY4CC Occlusion of Hemorrhoidal Plexus with Extraluminal Device, Percutaneous Endoscopic Approach (ICD-10-PCS; principal; 2017-04-22 16:58)
DX: K57.31 Diverticulosis of large intestine without perforation or abscess with bleeding (principal); N17.9 Acute kidney failure, unspecified; D62 Acute posthemorrhagic anemia; K64.8 Other hemorrhoids; I10 Essential (primary) hypertension; E78.5 Hyperlipidemia, unspecified; N40.0 Benign prostatic hyperplasia without lower urinary tract symptoms
CPT/HCPCS: 36415; 36430; 71046-TC-FY; 74174-TC; 74176-TC; 78278-TC; 80048; 80053; 82272; 83605; 83690; 83735; 85025; 85027; 85610; 86850; 86900; 86901; 86922; 93005; 93010; 99285-25; A9538; P9034; P9038; P9058

== ENCOUNTER 2017-06-12 17:39 | Observation (INO) | payer BC, OTHER ==
[2017-06-12 18:27] VITALS: BMI 29.3
[2017-06-12] MEDS ORDERED: ASPIRIN 81 MG CHEWABLE TABLETS PO ONE (18:36)
--- NOTE | 2017-06-12 18:36 | PDOC ---
History of Present Illness <Megha Johnson - Last Filed: 06/12/17 21:07> - General History Source: Patient Exam Limitations: No Limitations <Angelina Guillory - Last Filed: 06/12/17 23:04> - General Chief Complaint: Chest Pain Stated Complaint: PAIN Time Seen by Provider: 06/12/17 18:35 - History of Present Illness Initial Comments: 06/12/17 19:09 The patient is a 66 year old male with history of hypertension who presents to the ED complaining of chest pain that began approximately 3 hours prior to arrival. The patient describes his chest pain as pressure like, midsternal pain , with radiation to the left upper extremity, not associated with positional changes. He states he took 160 mg ASA at home. EMS administered another 160 mg ASA and 2 sublingual nitroglycerin. No nausea, vomiting, or diarrhea. No nausea , vomiting, or diarrhea. No peripheral edema or shortness of breath. No fever or chills. States he had unremarkable stress test approximately 4 years ago. PCP: Dr. Alfredo Burden GI: Dr. Rice (Angelina Guillory) Past History - Past Medical History COPD: No HTN: Yes Hypercholesterolemia: Yes - Suicide/Smoking/Psychosocial Hx Smoking History: Never smoked Have you smoked in the past 12 months: No If you are a former smoker, when did you quit?: 30yrs ago Information on smoking cessation initiated: No Hx Alcohol Use: No Drug/Substance Use Hx: No Substance Use Type: None Hx Substance Use Treatment: No <Megha Johnson - Last Filed: 06/12/17 21:07> <Angelina Guillory - Last Filed: 06/12/17 23:04> - Past Medical History Allergies/Adverse Reactions: Allergies Allergy/AdvReac Type Severity Reaction Status Date / Time No Known Allergies Allergy Verified 04/20/16 19:32 Home Medications: Ambulatory Orders Dutasteride [Avodart] 0.5 mg PO DAILY 12/08/14 Tamsulosin HCl [Flomax -] 0.4 mg PO BID 12/08/14 Topiramate [Topamax] 25 mg PO DAILY 12/08/14 Verapamil HCl [Verapamil ER] 240 mg PO DAILY 04/20/17 Icosapent Ethyl [Vascepa] 2 gm PO BID 04/21/17 Review of Systems <Megha Johnson - Last Filed: 06/12/17 21:07> - Review of Systems Able to Perform ROS?: Yes <Angelina Guillory - Last Filed: 06/12/17 23:04> - Review of Systems Comments:: 06/12/17 19:21 GENERAL/CONSTITUTIONAL: No fever or chills. No weakness. HEAD, EYES, EARS, NOSE AND THROAT: No change in vision. No ear pain or discharge. No sore throat. CARDIOVASCULAR: +Chest pain. No shortness of breath or peripheral edema. RESPIRATORY: No cough, wheezing, or hemoptysis. GASTROINTESTINAL: No nausea, vomiting, diarrhea or constipation. GENITOURINARY: No dysuria, frequency, or change in urination. MUSCULOSKELETAL: No joint or muscle swelling or pain. No neck or back pain. SKIN: No rash NEUROLOGIC: No headache, vertigo, loss of consciousness, or change in strength/ sensation. ENDOCRINE: No increased thirst. No abnormal weight change. HEMATOLOGIC/LYMPHATIC: No anemia, easy bleeding, or history of blood clots. ALLERGIC/IMMUNOLOGIC: No hives or skin allergy. (Angelina Guillory) *Physical Exam <Megha Johnson [place] - Last Filed: 06/12/17 21:07> <Angelina Guillory - Last Filed: 06/12/17 23:04> - Vital Signs Last Vital Signs Temp Pulse Resp BP Pulse Ox 97.3 F L 72 18 132/83 100 06/12/17 17:39 06/12/17 17:39 06/12/17 17:39 06/12/17 17:39 06/12/17 17:39 - Physical Exam Comments: 06/12/17 19:21 GENERAL: Awake, alert, and fully oriented, in no acute distress HEAD: No signs of trauma EYES: PERRLA, EOMI, sclera anicteric, conjunctiva clear ENT: Auricles normal inspection, nares patent. Moist mucosa NECK: Normal ROM, supple, no JVD, or masses LUNGS: Breath sounds equal, clear to auscultation bilaterally. No wheezes, and no crackles HEART: Regular rate and rhythm, normal S1 and S2, no murmurs, rubs or gallops ABDOMEN: Soft, nontender, normoactive bowel sounds. No guarding, no rebound. No masses EXTREMITIES: Normal range of motion, no edema. No clubbing or cyanosis. No cords, erythema, or tenderness NEUROLOGICAL: Alert and oriented x 3. Moves all extremities. Face is symmetric. SKIN: Warm, Dry, normal turgor, no rashes or lesions noted. (Angelina Guillory) Heart Score/ECG Review - History History: Slightly suspicious - Age Age: >/= 65 - Risk Factors Risk Factors Heart Score: Yes Hx Hypercholesterolemia, Yes Hx Hypertension Based on the list above the patient has:: 1-2 risk factors - Troponin Troponin: 1-3x normal limit #1 General ECG Interpretation: Sinus Rhythm - ECG Intrepretation Rhythm: Regular Rhythm - P and NM Prolonged NM Interval: 1st Degree Block(>20mils) Delta Wave(s) Present: No WPW: No - QRS Poor R Wave Progression: No - ST and T Early Repolarization: No Flattened T Waves: No - ECG Impressions Normal ECG: Yes Non-specific ST Elevation: No <Megha Johnson - Last Filed: 06/12/17 21:07> <Angelina Guillory - Last Filed: 06/12/17 23:04> #1 06/12/17 19:33 EKG obtained 18:10. Sinus rhythm with 1st degree AV block at 71 bpm. Otherwise normal EKG. (Angelina Guillory) ED Treatment Course - LABORATORY CBC & Chemistry Diagram: 06/12/17 19:05 06/12/17 19:05 <Megha Johnson - Last Filed: 06/12/17 21:07> - LABORATORY CBC & Chemistry Diagram: 06/12/17 19:05 06/12/17 19:05 <Angelina Guillory - Last Filed: 06/12/17 23:04> - ADDITIONAL ORDERS Additional order review: Laboratory Results 06/12/17 06/12/17 19:21 19:05 PT with INR 11.80 INR 1.04 Sodium 139 Potassium 3.9 Chloride 106 Carbon Dioxide 26 Anion Gap 7 L BUN 22 H Creatinine 1.0 Creat Clearance w eGFR > 60 Random Glucose 178 H D Calcium 8.4 L Magnesium 2.0 Total Bilirubin 0.3 D AST 14 L D ALT 20 Alkaline Phosphatase 55 Creatine Kinase 116 Troponin I 0.09 H D B-Natriuretic Peptide 39.77 Total Protein 6.8 Albumin 3.8 06/12/17 19:05 RBC 4.61 D MCV 85.4 MCHC 34.3 RDW 13.6 MPV 7.9 Neutrophils % 82.3 Lymphocytes % 11.8 D Monocytes % 4.8 Eosinophils % 0.5 Basophils % 0.6 - Medications Given in the ED: ED Medications Discontinued Medications Generic Name Dose Route Start Last Admin Trade Name Jaironq PRN Reason Stop Dose Admin Aspirin 162 mg 06/12/17 18:36 06/12/17 18:45 Asa - PO 06/12/17 18:37 162 mg ONCE ONE Administration Tamsulosin HCl 0.4 mg 06/12/17 20:57 06/12/17 21:17 Flomax - PO 06/12/17 20:58 0.4 mg ONCE ONE Administration Medical Decision Making <Megha Johnson - Last Filed: 06/12/17 21:07> <Angelina Guillory - Last Filed: 06/12/17 23:04> - Medical Decision Making 06/12/17 20:14 66-year-old male brought in by ambulance after experiencing substernal chest pain about 4:30. Pain radiated to his left shoulder and down his left arm. Patient received aspirin and sublingual nitroglycerin 2 en route to the hospital. Upon presentation his chest pain was 5 out of 10. EKG is normal sinus rhythm at 71 with a first-degree AV block, otherwise normal. No signs of any acute ischemia First troponin however is 0.09. The patient will be admitted to have the troponin trended. Assessment noted that his chemistries he had a glucose of 178. Past medical history significant for diverticulitis and GI bleed earlier this year, BPH, hypertension, hyperlipidemia (Megha Johnson) 06/12/17 20:[address] Alfredo Burden, patient's PCP, at [phone]. Awaiting callback. 06/12/17 20:[address] Burden, who agrees to admit patient. 06/12/17 22:[address] Mckeon of cardiology at [phone]. 06/12/17 23:[address] Mckeon. (Angelina Guillory) *DC/Admit/Observation/Transfer - Discharge Dispostion Admit: Yes <Megha Johnson - Last Filed: 06/12/17 21:07> <Angelina Guillory - Last Filed: 06/12/17 23:04> Diagnosis at time of Disposition: Chest pain Qualifiers: Chest pain type: precordial pain Qualified Code(s): R07.2 - Precordial pain - Attestations Scribe Attestion: 06/12/17 19:21 Documentation prepared by Angelina Guillory, acting as director medical science for Megha Johnson MD. (Angelina Guillory)
[2017-06-12] MEDS ORDERED: ASPIRIN 81 MG CHEWABLE TABLETS ONE (18:43)
[2017-06-12 19:10] LABS: BASO % 0.6 % (0-2.0); EOS % 0.5 % (0-4.5); HEMATOCRIT 39.4 % (35.4-49); HEMOGLOBIN 13.5 GM/dL (11.7-16.9); LYMPH % 11.8 % (8-40); MCH 29.3 pg (25.7-33.7); MCHC 34.3 g/dl (32.0-35.9); MEAN CELL VOLUME 85.4 fl (80-96); MEAN PLT VOLUME 7.9 fl (7.5-11.1); MONO % 4.8 % (3.8-10.2); NEUT % 82.3 % (42.8-82.8); PLATELET COUNT 269 K/MM3 (134-434); RBC 4.61 M/mm3 (4.00-5.60); RDW 13.6 % (11.9-15.9); WHITE BLOOD COUNT 8.8 K/mm3 (4.0-10.0)
[2017-06-12 19:35] LABS: ALBUMIN 3.8 g/dl (3.4-5.0); ANION GAP 7 (8-16); BILIRUBIN,TOTAL 0.3 mg/dL (0.2-1.0); BLOOD UREA NITROGEN 22 mg/dL (7-18); CALCIUM 8.4 mg/dL (8.5-10.1); CHLORIDE 106 mmol/L (98-107); CO2 26 mmol/L (21-32); GLUCOSE,RANDOM 178 mg/dL (74-106); POTASSIUM 3.9 mmol/L (3.5-5.1); SGOT/AST 14 U/L (15-37); SGPT/ALT 20 U/L (12-78); SODIUM 139 mmol/L (136-145); TOT PROT 6.8 g/dl (6.4-8.2)
[2017-06-12 19:38] LABS: ALK PHOS 55 U/L (45-117); N-TERMINAL BNP 39.77 pg/ml (5-125)
[2017-06-12 19:45] LABS: INR 1.04 (0.82-1.09); PROTHROMBIN TIME (PATIENT) 11.8 SEC (9.98-11.88)
[2017-06-12] MEDS ORDERED: NITROGLYCERIN SUBLINGUAL 1/150 0.4 MG TAB SL ONE ×2 (20:57→23:00)
[2017-06-12] MEDS ORDERED: TAMSULOSIN HCL 0.4 MG CAP.ER.24H (FP) PO ONE (20:57)
[2017-06-12] MEDS ORDERED: DEXTROSE 5%-0.45% SALINE 1,000 ML IV SCH (21:00)
[2017-06-12] MEDS ORDERED: PANTOPRAZOLE 40 MG TABLET (FP) PO SCH (21:07)
[2017-06-12] MEDS ORDERED: PANTOPRAZOLE 40 MG TABLET (FP) ONE (21:19)
[2017-06-12] MEDS ORDERED: NITROGLYCERIN SUBLINGUAL 1/150 0.4 MG TAB ONE (23:03)
[2017-06-12] MEDS ORDERED: ACETAMINOPHEN 325 MG TABLET (FP) PO ONE (23:12)
[2017-06-12] MEDS ORDERED: METOPROLOL TARTRATE 25 MG TABLET (FP) PO ONE (23:12)
[2017-06-12] MEDS ORDERED: ACETAMINOPHEN 325 MG TABLET (FP) ONE (23:31)
[2017-06-12] MEDS ORDERED: METOPROLOL TARTRATE 25 MG TABLET (FP) ONE (23:31)
[2017-06-12] MEDS ORDERED: ENOXAPARIN NA (PORCINE) 80 MG/0.8 ML DISP.SYRIN SQ ONE (23:35)
[2017-06-12] MEDS ORDERED: ENOXAPARIN NA (PORCINE) 80 MG/0.8 ML DISP.SYRIN SQ SCH (23:45)
[2017-06-13] MEDS ORDERED: NITROGLYCERIN 25MG/D5W 250ML 25 MG/250 ML ML IVPB SCH (00:30)
[2017-06-13] MEDS ORDERED: NITROGLYCERIN 25MG/D5W 250ML 25 MG/250 ML ML IVPB ONE ×3 (00:32→05:20)
[2017-06-13] MEDS ORDERED: HEPARIN NA (PORCINE) 5,000 UNITS/ML 1ML VIAL ONE (04:24)
[2017-06-13] MEDS ORDERED: HEPARIN INFUSION - 25,000 UNITS/500 ML INFUS.BAG IVPB ONE (04:24)
[2017-06-13] MEDS ORDERED: HEPARIN - 25,000 UNIT in SODIUM CHLORIDE 495 ML IV ONE (04:36)
[2017-06-13] MEDS ORDERED: HEPARIN NA (PORCINE) 5,000 UNITS/ML 1ML VIAL IVPUSH PRN ×2 (04:36)
[2017-06-13 04:57] VITALS: TEMP 98.5
[2017-06-13] MEDS ORDERED: METOPROLOL TARTRATE 25 MG TABLET (FP) PO ONE (05:30)
--- NOTE | 2017-06-13 05:30 | ED.PROV ---
Physicial Exam I saw and examined the patient. - Vital Signs Last Vital Signs Temp Pulse Resp BP Pulse Ox 98.5 F 88 18 139/88 98 06/13/17 03:00 06/13/17 03:00 06/13/17 03:00 06/13/17 03:00 06/13/17 03:00 Critical Care Time/MDM Note - Medical Decision Making Note: 06/13/17 05:28 Pt noted with troponin 4.[address] Mckeon and Dr. Alfredo Mckeon requests an additional 25 metoprolol PO He is coming in now into the hospital. Will likely need transfer. Dr. Alfredo Burden aware and will inform me shortly which hospital to transfer the patient to. 06/13/17 06:59 Dr. Burden had seen and evaluated patient. Patient to be transferred to [facility]. I had spoken with Dr. Leif Najera (cardiac interventionalist) at [facility] He requests that I give ticagrelor 180 mg and 80 mg lipitor He will follow along. His cell phone: [phone]
[2017-06-13] MEDS ORDERED: METOPROLOL TARTRATE 25 MG TABLET (FP) ONE (05:35)
--- NOTE | 2017-06-13 06:08 | HP ---
Admitting History and Physical - Admission Chief Complaint: ptw cp localied substernal for 1 hr denied any other complaints. currently less cp but tni climbing up ekg nl. ? 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: Migraine, Vertigo, Other ( cx neuralgia) Cardiovascular: Yes: HTN Pulmonary: Yes: COPD Musculoskeletal: Yes: Chronic low back pain - Past Surgical History Past Surgical History: Yes: None - Smoking History Smoking history: Never smoked Have you smoked in the past 12 months: No If you are a former smoker, when did you quit?: 30yrs ago - Alcohol/Substance Use Hx Alcohol Use: No History of Substance Use: reports: None - Social History Usual Living Arrangement: Yes: With Spouse ADL: Independent History of Recent Travel: No Home Medications - Allergies Allergies/Adverse Reactions: Allergies Allergy/AdvReac Type Severity Reaction Status Date / Time No Known Allergies Allergy Verified 04/20/16 19:32 - Home Medications Home Medications: Ambulatory Orders Dutasteride [Avodart] 0.5 mg PO DAILY 12/08/14 Tamsulosin HCl [Flomax -] 0.4 mg PO BID 12/08/14 Topiramate [Topamax] 25 mg PO DAILY 12/08/14 Verapamil HCl [Verapamil ER] 240 mg PO DAILY 04/20/17 Icosapent Ethyl [Vascepa] 2 gm PO BID 04/21/17 Family Disease History - Family Disease History Family History: Unremarkable Review of Systems - Review of Systems Constitutional: reports: Other (cp) Eyes: reports: No Symptoms HENT: reports: No Symptoms Neck: reports: Other (less cx migraine?) Cardiovascular: reports: No Symptoms Gastrointestinal: reports: No Symptoms Genitourinary: reports: No Symptoms Breasts: reports: No Symptoms Reported Musculoskeletal: reports: No Symptoms Integumentary: reports: No Symptoms Neurological: reports: No Symptoms Endocrine: reports: No Symptoms Hematology/Lymphatic: reports: No Symptoms Psychiatric: reports: No Symptoms Physical Examination Vital Signs: Vital Signs Temperature 98.5 F 06/13/17 03:00 Pulse Rate 88 06/13/17 03:00 Respiratory Rate 18 06/13/17 03:00 Blood Pressure 139/88 06/13/17 03:00 O2 Sat by Pulse Oximetry (%) 98 06/13/17 03:00 Constitutional: Yes: Well Nourished Eyes: Yes: WNL HENT: Yes: WNL Neck: Yes: WNL Cardiovascular: Yes: Regular Rate and Rhythm Respiratory: Yes: WNL Gastrointestinal: Yes: WNL ...Rectal Exam: Yes: Deferred Renal/: Yes: WNL Breast(s): Yes: WNL Musculoskeletal: Yes: WNL Extremities: Yes: WNL Edema: No Peripheral Pulses: Left Radial: 2+, Right Radial: 2+, Left Doralis Pedis: 2+, Right Dorsalis Pedis: 2+, Left Femoral: 2+ Integumentary: Yes: WNL Neurological: Yes: WNL, Alert, Oriented ...Motor Strength: WNL Psychiatric: Yes: WNL Labs: CBC, BMP 06/12/17 19:05 06/12/17 19:05 Assessment/Plan ? transfer to [facility] for ? card cath heparin ntr drip card coming in as per cardio tranfer to [facility] ? cath? cont tni /ekgs
[2017-06-13] MEDS ORDERED: TICAGRELOR 90 MG TABLET PO ONE ×3 (06:54→07:17)
[2017-06-13] MEDS ORDERED: ATORVASTATIN CA 80 MG TABLET (FP) PO ONE (06:55)
[2017-06-13] MEDS ORDERED: ASPIRIN 81 MG CHEWABLE TABLETS PO ONE (06:56)
[2017-06-13] MEDS ORDERED: GEMFIBROZIL 600 MG TABLET (FP) PO SCH (07:00)
[2017-06-13] MEDS ORDERED: ASPIRIN 81 MG CHEWABLE TABLETS ONE (07:19)
[2017-06-13] MEDS ORDERED: ATORVASTATIN CA 80 MG TABLET (FP) ONE (07:23)
[2017-06-13] MEDS ORDERED: METOPROLOL TARTRATE 5 MG/5 ML VIAL ONE (08:04)
[2017-06-13] MEDS ORDERED: morphine CARPU-JECT 2 MG/1 ML DISP.SYRIN IVPUSH ONE (08:05)
[2017-06-13] MEDS ORDERED: morphine SULFATE 4 MG/ML VIAL ONE (08:06)
--- NOTE | 2017-06-13 08:08 | PN ---
Progress Note (short form) - Note Progress Note: Patient had recurrence of chest pain associated with elevation of BP, IV lopressor and morphine was administered with moderate relief.Spoke tor. Leif Najera and advised him that patient needs emergent cath. and call center for called for urgent transfer. Paramedics are in the here. Patient's symptoms are improving since RX. Spoke to a PA at [facility] and appraised him of the patient's status and h/o recent GI bleed. Last Vital Signs Temp Pulse Resp BP Pulse Ox 98.5 F 65 16 122/89 97 06/13/17 03:00 06/13/17 08:14 06/13/17 08:14 06/13/17 08:14 06/13/17 08:14 66 year male in mild distress, no pallor, cyanosis,clubbing or jaundice. NECK: Supple, no JVD, carotids equal. HEART: PMI in the 5th ICS,no heaves or thrills, S1&S2 are normal, no murmur , S4 gallop at the apex. LUNGS: Clear. ABdomen: Soft, no organomegaly or palpable masses. EXTREMITIES: No calf tenderness or dependent edema. CBC, BMP 06/12/17 19:05 06/12/17 19:05 Troponin, BNP 06/12/17 06/12/17 06/13/17 19:05 21:45 03:01 Troponin I 0.09 H D 0.28 H D 4.91 H* D B-Natriuretic Peptide 39.77 IMPRESSION: 1.CAD,acute CO (Suspect STEMI) 2.Hypertension. 3.Dyslipidemia. 4.H/o recent lower GI bleed. RECOMMENDATIONS: 1.Transfer in progress. Prognosis: Critical. Intensive care 1hr 50 mins.
[2017-06-13] MEDS ORDERED: METOPROLOL TARTRATE 5 MG/5 ML VIAL IVPUSH ONE (08:15)
[2017-06-13 09:05] VITALS: BP 130/86; PULSE 68
[2017-06-13] MEDS ORDERED: DUTASTERIDE 0.5 MG CAP (FP) PO SCH (10:00)
[2017-06-13] MEDS ORDERED: ASPIRIN COATED 81 MG TABLET.EC PO SCH (10:00)
[2017-06-13] MEDS ORDERED: TOPIRAMATE 25 MG TABLET (FP) PO SCH (10:00)
[2017-06-13] MEDS ORDERED: VERAPAMIL HCL 240 MG E.R. TABLET (FP) PO SCH (10:00)
--- NOTE | 2017-06-13 10:06 | EKG ---
Test Reason : Blood Pressure : / mmHG Vent. Rate : 068 BPM Atrial Rate : 068 BPM P-R Int : 216 ms QRS Dur : 092 ms QT Int : 406 ms P-R-T Axes : 045 002 025 degrees QTc Int : 431 ms SINUS RHYTHM WITH 1ST DEGREE A-V BLOCK OTHERWISE NORMAL ECG WHEN COMPARED WITH ECG OF 12-JUN-2017 21:41, NO SIGNIFICANT CHANGE WAS FOUND Confirmed by Sky Valladares MD ([id number]) on 06/13/2017 10:06:43 AM Referred By: Confirmed By:Sky Valladares MD
--- NOTE | 2017-06-13 10:06 | EKG ---
Test Reason : Blood Pressure : / mmHG Vent. Rate : 068 BPM Atrial Rate : 068 BPM P-R Int : 220 ms QRS Dur : 090 ms QT Int : 406 ms P-R-T Axes : 040 -01 022 degrees QTc Int : 431 ms SINUS RHYTHM WITH 1ST DEGREE A-V BLOCK OTHERWISE NORMAL ECG WHEN COMPARED WITH ECG OF 12-JUN-2017 18:10, NO SIGNIFICANT CHANGE WAS FOUND Confirmed by Sky Valladares MD ([id number]) on 06/13/2017 10:06:38 AM Referred By: Confirmed By:Sky Valladares MD
--- NOTE | 2017-06-13 10:08 | EKG ---
Test Reason : Blood Pressure : / mmHG Vent. Rate : 070 BPM Atrial Rate : 070 BPM P-R Int : 250 ms QRS Dur : 094 ms QT Int : 386 ms P-R-T Axes : 050 -04 014 degrees QTc Int : 416 ms SINUS RHYTHM WITH 1ST DEGREE A-V BLOCK OTHERWISE NORMAL ECG WHEN COMPARED WITH ECG OF 12-JUN-2017 18:10, NO SIGNIFICANT CHANGE WAS FOUND Confirmed by Sky Valladares MD ([id number]) on 06/13/2017 10:07:48 AM Referred By: Confirmed By:Sky Valladares MD
--- NOTE | 2017-06-13 10:08 | CONS ---
DATE OF CONSULTATION: 06/13/2017 CARDIOLOGY CONSULTATION REQUESTING PHYSICIAN: Consultation requested by Dr. Alfredo Burden. LOCATION: Emergency room. CHIEF COMPLAINT: Chest pain. HISTORY OF PRESENT ILLNESS: Patient is a 66-year-old [place] gentleman with history of hypertension, hypocholesterolemia, who was admitted with second onset of substernal and anterior chest pain, starting on June 12. Pain radiated to both arms and back, and was persistent, and family brought him to the emergency room. He recently had a lower GI bleed requiring blood transfusion apparently related diverticular disease. There is no history of dyspnea either at rest or at exertion, no history of diaphoresis, nausea, or vomiting. There is no history of palpations, lightheadedness, dizziness, presyncope, or syncope. No history of diabetes mellitus. According to his daughter, patient 4 years ago had a workup which apparently included a catheterization and was being treated medically. PAST HISTORY: As mentioned in the history of present illness. SURGICAL HISTORY: Patient has had no surgeries. SOCIAL HISTORY: He is retired, is , has 2 sons and 4 daughters who are healthy. He smoked from the age of 26 to his late 30s about half-a-pack of cigarettes per day, has an occasional glass of wine. FAMILY HISTORY: Father in his 70s of a cerebrovascular accident, mother apparently of bleeding, site uncertain. He had 4 brothers and 2 sisters. One of the brothers during the ovo war. Other siblings are healthy. ALLERGIES: None reported. MEDICATIONS: 1. Avodart 0.5 mg p.o. daily. 2. Flomax 0.4 mg b.i.d. 3. Topamax 25 mg p.o. daily. 4. Verapamil 240 mg p.o. daily. 5. Vascepa 2 mg p.o. b.i.d. Current medications include: 1. Heparin as per protocol. 2. Topamax 25 mg p.o. daily. 3. Verapamil 240 mg p.o. daily. 4. Avodart 0.5 mg p.o. daily. 5. Gemfibrozil 600 mg p.o. b.i.d. 6. IV nitro 10 mcg per minute. 7. Aspirin 81 mg p.o. daily. 8. Pantoprazole 40 mg p.o. daily. 9. Brilinta 180 mg p.o. 10. Atorvastatin 80 mg p.o. daily. REVIEW OF SYSTEMS: Constitutional: No history of chills, fever, or night sweats. No history of unintentional weight loss. HEENT: History of occasional headaches. No history of diplopia, blurred vision. No history of epistaxis, hoarseness, tinnitus, or deafness reported. Cardiovascular system: See history of present illness. Respiratory system: No history of cough, expectoration, or hemoptysis. Gastrointestinal system: No history of nausea, vomiting, melena, or hematemesis. History of recent diverticular bleed requiring blood transfusion. No history of change in bowel habits. Neurological system: No history of lightheadedness, dizziness, presyncope, or syncope reported. No history of focal weakness or seizures. Endocrine: No history of polyuria or polydipsia. No history of intolerance to cold or warm weather. No known endocrinologic disorder. Genitourinary system: History of BPH. History of nocturia and occasional frequency. No history of hematuria. Musculoskeletal system: No history of myalgias or arthralgias reported. Hematological/lymphatics: No history of ecchymosis. History of lower GI bleeding requiring blood transfusion. PHYSICAL EXAMINATION: General: This 66-year-old gentleman complaining of mild chest discomfort. No pallor, cyanosis, clubbing, or jaundice. Vital signs: Blood pressure 128/98 mmHg. Pulse 72 beats per minute and regular. Temperature 98.5 degrees Fahrenheit. Respirations 16 per minute. Weight 193 pounds. Neck: Supple, no jugular venous distention. Carotids were 2+. Upstrokes were normal. No bruits were heard, and no thyromegaly was present. Heart: PMI was in the 5th intercostal space, no heaves or thrills. S1 and S2 were normal, no murmurs were heard. There was an S4 gallop at the apex. Lungs: Clear on auscultation. Chest: Normal AP diameter, expansion was symmetrical. Abdomen: Soft, protuberant, nontender, no hepatosplenomegaly or palpable masses were felt. Bowel sounds are present. No bruits were heard. Extremities: No calf tenderness or dependent edema. Pulses were equal. LABORATORY DATA: ECG June 12, 2017, at 2141, sinus rhythm with 1st degree AV block, small Q-waves associated with upward going of ST segments in leads 1, aVL, V5, and V6, and early transition in V2, possibility of posterolateral wall myocardial infarction is raised. Followup ECG June 13, 2017, at 5:23, sinus rhythm with 1st degree AV block, compared to earlier tracing no significant changes were seen. Repeat ECG at 6:12 a.m. revealed sinus rhythm with 1st degree AV block, compared to earlier tracing no significant changes were seen. All 3 ECGs also revealed embryonic Q-wave in V2. Laboratory data: CBC with WBC count 8800, hemoglobin 13.5 g/dL, hematocrit 39.4%, platelets 269,000. Chemistries with sodium 139, potassium 3.9, chloride 106, CO2 at 26 mmo/L dated 06/12/2017, BUN 22, creatinine 1.0 mg/dL, random glucose 178 mg/dL. CK on June 12 was 116. Followup at 2145 was 95. Followup on June 13 at 3:00 a.m. was 341. Troponins were 0.09, 0.28, and 4.91 respectively. BNP was 39.77. X-ray chest June 12, 2017, impression: Shallow inspiration with low lung volumes. No evidence of air space consolidation or pleural effusion. IMPRESSION: 1. Coronary artery disease, acute myocardial infarction most probably posterolateral wall involvement. 2. Hypertension, hypertensive cardiovascular disease with elevated diastolic blood pressure. 3. Dyslipidemia, type 2B. 4. Benign prostatic hypertrophy. RECOMMENDATIONS: 1. Dr. Burden has made arrangements for urgent transfer to [facility] for cardiac catheterization/intervention. 2. Titrate IV nitro in view of ongoing chest discomfort and elevated blood pressure. 3. Continue beta-blockers. 4. If patient has significant bradycardia or increasing 1st degree heart block, the dose of verapamil should be reduced while he is on beta-blockers. 5. Patient and family are aware of his condition and need for transfer to tertiary care center. PROGNOSIS: Critical. Thank you for your referral. Yours sincerely, KIZZY RICH M.D. [id number]
--- NOTE | 2017-06-13 10:10 | EKG ---
Test Reason : Blood Pressure : / mmHG Vent. Rate : 071 BPM Atrial Rate : 071 BPM P-R Int : 230 ms QRS Dur : 094 ms QT Int : 394 ms P-R-T Axes : 046 -04 019 degrees QTc Int : 428 ms SINUS RHYTHM WITH 1ST DEGREE A-V BLOCK OTHERWISE NORMAL ECG WHEN COMPARED WITH ECG OF 20-APR-2017 21:37, [place] INTERVAL HAS INCREASED Confirmed by Sky Valladares MD ([id number]) on 06/13/2017 10:10:05 AM Referred By: Confirmed By:Sky Valladares MD
== END 2017-06-13 09:01 | disposition short-term general hospital (02) ==
LOC: JER 17:39 → SUPCPDRO 17:39 → JERBED 20:23
PROVIDERS: ADMIT Family Medicine; ATTEND Family Medicine
PROC: 3E033GC Introduction of Other Therapeutic Substance into Peripheral Vein, Percutaneous Approach (ICD-10-PCS; principal; 2017-06-12)
PROC: 3E033NZ Introduction of Analgesics, Hypnotics, Sedatives into Peripheral Vein, Percutaneous Approach (ICD-10-PCS; 2017-06-12)
PROC: 3E0337Z Introduction of Electrolytic and Water Balance Substance into Peripheral Vein, Percutaneous Approach (ICD-10-PCS; 2017-06-12)
DX: E78.5 Hyperlipidemia, unspecified (principal); I44.0 Atrioventricular block, first degree; J44.9 Chronic obstructive pulmonary disease, unspecified; M54.5 Low back pain; G89.29 Other chronic pain; I25.10 Atherosclerotic heart disease of native coronary artery without angina pectoris; I21.9 Acute myocardial infarction, unspecified; I11.9 Hypertensive heart disease without heart failure; N40.0 Benign prostatic hyperplasia without lower urinary tract symptoms
CPT/HCPCS: 36415; 71045-TC-FY; 80053; 82550; 82553; 83735; 83880; 84484; 85025; 85379; 85610; 93005; 93010; 96365; 96366; 96367; 96375; 99285-25; G0378; J1644

== ENCOUNTER 2017-11-25 02:17 | Emergency (ER) | payer BC, MEDICARE, OTHER ==
[2017-11-25 03:19] VITALS: BP 144/94; PULSE 79; TEMP 97.6; BMI 29.7
--- NOTE | 2017-11-25 03:29 | PDOC ---
Attending Attestation - Resident Resident Name: Quoc Fraire - ED Attending Attestation I have performed the following: I have examined & evaluated the patient, The case was reviewed & discussed with the resident, I agree w/resident's findings & plan - HPI HPI: 11/25/17 20:06 Pt is anxious and comes with elevated blood pressure at home. BP is normal here. Pt has no CP. No other complaints. Exam normal and EKG normal. - Physicial Exam PE: 11/25/17 20:07 Agree with resident exam - Medical Decision Making 11/25/17 20:07 Home and follow with PMD. Eat low salt diet
--- NOTE | 2017-11-25 03:47 | PDOC ---
History of Present Illness - General Chief Complaint: Blood Pressure Problem Stated Complaint: HIGH BLOOD PRESSURE Time Seen by Provider: 11/25/17 03:15 History Source: Patient Exam Limitations: No Limitations - History of Present Illness Initial Comments: 11/25/17 03:43 67 y/o m with pmh of migrain, htn, anxiety and cad came to hospital because of high BP. Pt states that he checks his BP 4-5 times a day and today it was 160 systolic so he took 50mg extra dose of metoprolol succuinate and came to hospital. Denies chest pain, sob, palpitations, headache, nausea, vomiting, change in vision, weakness in any part of body. In hospital BP is 144/90 Past History - Past Medical History Allergies/Adverse Reactions: Allergies Allergy/AdvReac Type Severity Reaction Status Date / Time No Known Allergies Allergy Verified 11/25/17 03:14 Home Medications: Ambulatory Orders Dutasteride [Avodart] 0.5 mg PO DAILY 12/08/14 Tamsulosin HCl [Flomax -] 0.4 mg PO BID 12/08/14 Topiramate [Topamax] 25 mg PO DAILY 12/08/14 Verapamil HCl [Verapamil ER] 240 mg PO DAILY 04/20/17 Icosapent Ethyl [Vascepa] 2 gm PO BID 04/21/17 COPD: No GI Disorders: Yes (Diverticulitis) Disorders: Yes (BPH) HTN: Yes Hypercholesterolemia: Yes Other medical history: Migrains - Suicide/Smoking/Psychosocial Hx Smoking History: Never smoked Have you smoked in the past 12 months: No If you are a former smoker, when did you quit?: 30yrs ago Information on smoking cessation initiated: No Hx Alcohol Use: No Drug/Substance Use Hx: No Substance Use Type: None Hx Substance Use Treatment: No Review of Systems - Review of Systems Able to Perform ROS?: Yes Constitutional: No: Chills, Diaphoresis, Fever HEENTM: No: Eye Pain, Blurred Vision Respiratory: No: Cough, Shortness of Breath, SOB at Rest, Wheezing Cardiac (ROS): No: Chest Pain, Irregular Heart Rate, Lightheadedness, Palpitations ABD/GI: No: Constipated, Diarrhea, Nausea, Vomiting : Yes: Discharge Neurological: No: Headache, Tremors, Weakness Psychiatric: Yes: Anxiety *Physical Exam - Vital Signs Last Vital Signs Temp Pulse Resp BP Pulse Ox 97.6 F 79 20 144/94 100 11/25/17 03:14 11/25/17 03:14 11/25/17 03:14 11/25/17 03:14 11/25/17 03:14 - Physical Exam General Appearance: Yes: Appropriately Dressed, Apparent Distress HEENT: positive: EOMI, RACHEL, Normal Voice, Symmetrical Neck: positive: Supple Respiratory/Chest: positive: Lungs Clear, Normal Breath Sounds. negative: Chest Tender, Respiratory Distress, Accessory Muscle Use Cardiovascular: positive: Regular Rhythm, Regular Rate, S1, S2 Gastrointestinal/Abdominal: positive: Normal Bowel Sounds, Soft. 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 Patient states that she has difficulty in breathing from 3-4 days but it has progressed slowly. She also reports non productive cough from 3-4 days which has also increased. Denies fever and chills. Denies sick contact. Also reports chest tenderness on both sides of sternum. Last asthma attack was 10 years ago. She also states ate some nuts and then develop rashes on her face. Denies palpitations. we will get ekg. 11/25/17 03:59 EKG: NSR, with 1st degree block discussed with Dr chavez we will dc him home and he will follow up with his casing soaker and pcp *DC/Admit/Observation/Transfer Diagnosis at time of Disposition: Blood pressure check - Discharge Dispostion Disposition: HOME Condition at time of disposition: Stable Decision to Admit order: No - Referrals Referrals: Alfredo Burden MD [Primary Care Provider] - - Patient Instructions Additional Instructions: follow up with your pcp and casing soaker. Take your meds as you were taking it before. - Post Discharge Activity
--- NOTE | 2017-11-26 21:43 | EKG ---
Test Reason : Blood Pressure : / mmHG Vent. Rate : 065 BPM Atrial Rate : 065 BPM P-R Int : 210 ms QRS Dur : 088 ms QT Int : 402 ms P-R-T Axes : 056 000 043 degrees QTc Int : 418 ms SINUS RHYTHM WITH 1ST DEGREE A-V BLOCK OTHERWISE NORMAL ECG WHEN COMPARED WITH ECG OF 13-JUN-2017 06:12, NO SIGNIFICANT CHANGE WAS FOUND Confirmed by FELIBERTO MONTERO MD ([id number]) on 11/26/2017 9:42:45 PM Referred By: Confirmed By:FELIBERTO MONTERO MD
== END 2017-11-25 04:27 | disposition home or self-care (01) ==
LOC: JER 02:17
DX: I10 Essential (primary) hypertension (principal); I25.10 Atherosclerotic heart disease of native coronary artery without angina pectoris; F41.9 Anxiety disorder, unspecified; G43.909 Migraine, unspecified, not intractable, without status migrainosus; N40.0 Benign prostatic hyperplasia without lower urinary tract symptoms; Z87.19 Personal history of other diseases of the digestive system
CPT/HCPCS: 93005; 93010; 99281-25